=== PATIENT | male | born 1970 | race Caucasian/White ===

== ENCOUNTER 2018-05-07 11:16 | Inpatient (IN) | payer MEDICAID ==
[~2018-05-07] VITALS: Ht 175.3 cm; Wt 89.1 kg
[2018-05-07 11:23] VITALS: Ht 175.3 cm; Wt 89.1 kg
[2018-05-07] MEDS ORDERED: VANCOMYCIN 1 GM (PMX) 250 ML IVPB STA (12:28)
[2018-05-07] MEDS ORDERED: PIPER-TAZO 3.375 GM IV (PMX) 100 ML IVPB STA (12:28)
[2018-05-07] MEDS ORDERED: SODIUM CHLORIDE 0.9% 1L BAG IV* STA (12:28)
--- NOTE | 2018-05-07 13:08 | ERD ---
ER Documentation Chief Complaint Chief Complaint LT PINKY TOE WOUND X 2 WEEKS HPI Patient is a 47-year-old male with past medical history of diabetes, states he takes DM medication from [facility], presents the ER for concerns of left pinky toe wound. Patient states he has had the wound for 2 weeks now. Patient reports foot swelling. Patient denies any fevers or chills. Patient denies falls or trauma. Patient is able to ambulate however he states it is painful. ROS All systems reviewed and are negative except as per history of present illness. Allergies Allergies: Coded Allergies: No Known Allergy (Unverified , 05/07/18) FmHx Family History: No diabetes Physical Exam Vitals Vital Signs Date Temp Pulse Resp B/P (MAP) Pulse Ox O2 O2 Flow FiO2 Time Delivery Rate 05/07/18 98.6 72 18 145/80 98 11:23 (101) Physical Exam GENERAL: Well-developed, well-nourished male. Appears in no acute distress. Speaking in full sentences. Setswana-speaking. HEAD: Normocephalic, atraumatic. EYES: Pupils are equally reactive bilaterally. EOMs grossly intact. No conjunctival erythema. NECK: Supple. No meningismus. Normal range of motion of the neck. LUNG: Clear to auscultation bilaterally. No rhonchi, wheezing, rales or coarse breath sounds. HEART: Regular rate and rhythm. No murmurs, rubs or gallops. EXTREMITIES: Equal pulses bilaterally. No peripheral clubbing, cyanosis or edema. No unilateral leg swelling. NEUROLOGIC: Alert and oriented. Moving all four extremities without any difficulty. Normal speech. Steady gait. SKIN: Superficial ulcer noted to the left fourth digit. Open wound noted to medial aspect of fifth toe in the webspace with necrotic tissue. No active bleeding or discharge. Generalized swelling noted throughout the left foot. Normal pulses. Result Diagram: 05/07/18 1200 05/07/18 1200 Results 24 hrs Laboratory Tests Test 05/07/18 12:00 05/07/18 12:40 05/07/18 12:50 05/07/18 13:28 White Blood Count 7.5 10^3/ul Red Blood Count 4.54 10^6/ul Hemoglobin 14.0 g/dl Hematocrit 40.7 % Mean Corpuscular 89.6 fl Volume Mean Corpuscular 30.8 pg Hemoglobin Mean Corpuscular 34.4 g/dl Hemoglobin Concent Red Cell 11.2 % Distribution Width Platelet Count 261 10^3/UL Mean Platelet 9.6 fl Volume Immature 0.400 % Granulocytes % Neutrophils % 65.7 % Lymphocytes % 22.0 % Monocytes % 9.2 % Eosinophils % 1.9 % Basophils % 0.8 % Nucleated Red Blood 0.0 /100WBC Cells % Immature 0.030 10^3/ul Granulocytes # Neutrophils # 4.9 10^3/ul Lymphocytes # 1.7 10^3/ul Monocytes # 0.7 10^3/ul Eosinophils # 0.1 10^3/ul Basophils # 0.1 10^3/ul Nucleated Red Blood 0.0 10^3/ul Cells # Erythrocyte 28 mm/Hr Sedimentation Rate Sodium Level 131 mmol/L Potassium Level 4.7 mmol/L Chloride Level 100 mmol/L Carbon Dioxide 21 mmol/L Level Anion Gap 10 Blood Urea Nitrogen 30 mg/dl Creatinine 0.66 mg/dl Est Glomerular > 60 mL/min Filtrat Rate mL/min Glucose Level 453 mg/dl Bedside Glucose 400 mg/dL 344 mg/dL Calcium Level 8.8 mg/dl Total Bilirubin 0.4 mg/dl Direct Bilirubin 0.00 mg/dl Indirect Bilirubin 0.4 mg/dl Aspartate Amino 15 IU/L Transf (AST/SGOT) Alanine 9 IU/L Aminotransferase (A LT/SGPT) Alkaline 137 IU/L Phosphatase C-Reactive Protein 2.1 mg/dl Total Protein 6.7 g/dl Albumin 3.5 g/dl Globulin 3.20 g/dl Albumin/Globulin 1.09 Ratio Lipase 48 U/L Urine Color YELLOW Urine Clarity SLIGHTLY CLOUDY Urine pH 5.0 Urine Specific 1.022 [place] Urine Ketones NEGATIVE mg/dL Urine Nitrite NEGATIVE mg/dL Urine Bilirubin NEGATIVE mg/dL Urine Urobilinogen NEGATIVE mg/dL Urine Leukocyte 3+ Marlene/ul Esterase Urine Microscopic 4 /HPF RBC Urine Microscopic 7 /HPF WBC Urine Squamous FEW /HPF Epithelial Cells Urine Hemoglobin 1+ mg/dL Urine Glucose 3+ mg/dL Urine Total Protein NEGATIVE mg/dl Lactic Acid Level 1.6 mmol/L Current Medications Medications Dose Sig/Filiberto Start Time Status Last (Trade) Ordered Route PRN Stop Time Admin Dose Reason Admin Sodium 2,630 ml BOLUS OVER 2 05/07/18 DC 05/07/18 Chloride HOURS STAT 12:28 05/07/18 12:50 (NS) IV* 12:29 Vancomycin 250 ml @ ONCE STAT 05/07/18 DC 05/07/18 HCl 125 mls/hr IVPB 12:28 05/07/18 13:29 14:27 Piperacillin 100 ml @ ONCE STAT 05/07/18 DC 05/07/18 Sod/ 200 mls/hr IVPB 12:28 05/07/18 12:51 Tazobactam 12:57 Sod Insulin 10 unit ONCE ONCE 05/07/18 DC 05/07/18 Human SC 13:30 05/07/18 13:30 Lispro 13:31 (Humalog) Ondansetron 4 mg BRIDGE ORDER 05/07/18 HCl (Zofran PRN IV 14:00 05/08/18 Inj) NAUSEA/VOMITI 13:59 NG 650 mg ER BRIDGE 05/07/18 Acetaminophen PRN PO 14:00 05/08/18 (Tylenol .MILD PAIN 13:59 Tab) 1-3 OR TEMP IV Flush 3 ml PER 05/07/18 UNV (NS 3 ml) PROTOCOL IV 15:00 Ondansetron 4 mg Q6H PRN 05/07/18 UNV HCl (Zofran IV 15:00 Inj) NAUSEA/VOMITI NG 650 mg Q6H PRN 05/07/18 UNV Acetaminophen PO .PAIN 1-3 15:00 (Tylenol OR TEMP Tab) Heparin 5,000 unit Q8 SC 05/07/18 UNV Sodium 22:00 (Porcine) (Heparin (5000 Units/1ml)) Vancomycin VANCOMYCIN PER 05/07/18 UNV HCl (Vanco PER PHARMACY PROTOCOL XX 15:30 Iv Per Pharmacy) Piperacillin 100 ml @ Q6 IVPB 05/07/18 UNV Sod/ 200 mls/hr 18:00 Tazobactam Sod Procedures/MDM ED COURSE: The patient was stable throughout ED course. I kept the patient and/or family informed of laboratory and diagnostic imaging results throughout the ED course. DIAGNOSTIC IMAGING: Read by radiologist. Patient: WILL SANCHEZ : 1970 Age: 47 Sex: M MR #: [id number] DOS: 05/07/18 1147 Ordering MD: SCOTT HENNESSY PA-C Location: [facility] Room/Bed: PROCEDURE: XR Left Foot. CLINICAL INDICATION: left foot pain TECHNIQUE: AP, lateral and oblique views of the left foot was obtained. The images were reviewed on a PACS workstation. COMPARISON: None. FINDINGS: No acute appearing or displaced fracture detected. No definite erosive changes. Prominent mid and forefoot soft tissue swelling. No foreign body or soft tissue gas. Small calcaneal spurs. Severe vascular calcifications. IMPRESSION: Prominent soft tissue swelling without evidence of acute osseous abnormality. Consider MRI if there is concern for osteomyelitis. Physician Shasha Date Time Electronically viewed and signed by Physician Shasha on 05/07/2018 12:37 RF/ CC: SCOTT HENNESSY PA-C [id number] PROCEDURES: None. MEDICATIONS GIVEN: IV fluids, Zosyn, vancomycin Patient tolerated medication well with no adverse reactions. MEDICAL DECISION MAKING: This is a 47-year-old male with uncontrolled diabetes who presents ER for concerns of left pinky toe wound times 2 weeks.. Vital signs were reviewed. Patient was afebrile. Physical exam findings are concerning for an open toe wound with necrotic tissue. IV line was established. Blood work was obtained. Accu-Chek was noted to be 400. CBC showed no evidence of systemic infection or anemia. CMP showed glucose of 453. Bicarb was within normal limits. UA was negative for ketones. UA did show 3+ leukocyte esterase, 3+ glucose, 1+ hemoglobin. Urine will be sent for culture. CRP was 2.1. ESR was 23. Lipase was within normal limits. Doubt DKA at this time. Patient was given 10 units of Humalog SC and blood sugar was noted to be downtrending at this time. X-ray of the left foot showed prominent soft tissue swelling without evidence of acute osseous abnormality. MRI was advised if there were concerns for osteomyelitis. Lactate and blood cultures were obtained prior to administration of antibiotics. Lactic acid was 1.6. IV fluids was given. Patient was also given vancomycin and Zosyn here in the ER. Case was discussed with the supervising physician Dr. Badillo who agreed that patient was appropriate for admission at this time. Patient will be admitted for uncontrolled diabetes and necrotic toe wound. Patient also likely has a UTI. Dr. Badillo will assist with admission. Departure Diagnosis: Primary Impression: Toe ulcer Laterality: unspecified laterality Non-pressure ulcer stage: unspecified non-pressure ulcer stage Qualified Codes: L97.509 - Non-pressure chronic ulcer of other part of unspecified foot with unspecified severity Additional Impressions: Diabetes mellitus type 2, uncontrolled Glycemic state: with hyperglycemia Qualified Codes: E11.65 - Type 2 diabetes mellitus with hyperglycemia Swelling of left foot UTI (urinary tract infection) Urinary tract infection type: site unspecified Hematuria presence: without hematuria Qualified Codes: N39.0 - Urinary tract infection, site not specified Condition: SCOTT Emanuel PA-C May 07, 2018 13:08
[2018-05-07] MEDS ORDERED: INSULIN LISPRO 100 UNIT/ML VIAL SC ONE (13:30)
[2018-05-07] MEDS ORDERED: ONDANSETRON 4 MG INJ IV PRN ×2 (14:00→15:00)
[2018-05-07] MEDS ORDERED: ACETAMINOPHEN 325 MG TAB PO PRN ×2 (14:00→15:00)
[2018-05-07] MEDS ORDERED: NACL 0.9% 3 ML SYG IV SCH (15:00)
--- NOTE | 2018-05-07 15:14 | HP ---
Date/Time of Note Date/Time of Note DATE: 05/07/18 TIME: 15:04 Assessment/Plan VTE Prophylaxis SCD contraindicated: other (foot debridements) Pharmacological prophylaxis: heparin Lines/Catheters IV Catheter Type (from [facility]): Saline Lock Urinary Cath still in place: No Assessment/Plan Assessment/Plan 47 yo man newly diagnosed diabetes presents with diabetic foot ulcers #Foot ulcers - L toe ulcer looks infected - roberto Poole - Dr Phoenix consulted, doing debridement at bedside - Will f/u wound cultures - Also f/u MRI for osteomyelitis #Asymptomatic bacteruria - Unclear why UA was sent, patient denies urinary symptoms. #Diabetes - Send HgbA1C - Insulin sliding scale - Glargine 10u qhs - Consult Krista diabetes education DVT: heparin GI: None Result Diagram: 05/07/18 1200 05/07/18 1200 HPI/ROS Admit Date/Time Admit Date/Time May 07, 2018 Hx of Present Illness Mr. Da Valero is a pleasant 47 yo man from [facility] who presents with feet ulcers. Was in his usual state of health until about 2 weeks ago when he noticed a worsening L foot ulcer on his pinky toe. Also had R leg edema at the end of the day; but when he wakes up in the morning it's back to normal. About a week ago got tetracycline capsules at a clinic; he has been taking one orally every day and rubbing on topically on the affected digit. Had a fever the day prior to admission, so presented to the ED. In the ED he was afebrile; vital signs stable. Labs notable for hyponatremia to 131, hyperglycemia to 453. No known history of diabetes. XR of L foot shows soft tissue swelling, possible bonnie-osteal reaction. ROS Denies chills, night sweats, weight loss, fatigue, headache, vision changes, dysphagia, odynophagia, neck pain, chest pain/pressure/palpitations, cough, dyspnea, nausea, vomiting, abdominal pain, diarrhea, constipation, melena, skin changes. PMH/Family/Social Past Medical History Medical History: no pertinent history Medications Current Medications Ondansetron HCl (Zofran Inj) 4 mg BRIDGE ORDER PRN IV NAUSEA/VOMITING; Start 05/07/18 at 14:00; Stop 05/08/18 at 13:59 Acetaminophen (Tylenol Tab) 650 mg ER BRIDGE PRN PO .MILD PAIN 1-3 OR TEMP; Start 05/07/18 at 14:00; Stop 05/08/18 at 13:59 IV Flush (NS 3 ml) 3 ml PER PROTOCOL IV ; Start 05/07/18 at 15:00; Status UNV Ondansetron HCl (Zofran Inj) 4 mg Q6H PRN IV NAUSEA/VOMITING; Start 05/07/18 at 15:00; Status UNV Acetaminophen (Tylenol Tab) 650 mg Q6H PRN PO .PAIN 1-3 OR TEMP; Start 05/07/18 at 15:00; Status UNV Heparin Sodium (Porcine) (Heparin (5000 Units/1ml)) 5,000 unit Q8 SC ; Start 05/07/18 at 22:00; Status UNV Coded Allergies: No Known Allergy (Unverified , 05/07/18) Past Surgical History R inguinal hernia surgery Social History Alcohol Use: rarely (1 drink per week) Smoking Status: Never smoker Drug Use: none Exam/Review of Systems Vital Signs Vitals Vital Signs Date Temp Pulse Resp B/P (MAP) Pulse Ox O2 O2 Flow FiO2 Time Delivery Rate 05/07/18 98.6 72 18 145/80 98 11:23 (101) Exam Exam Gen: Well developed man in no acute distress Eyes: PERRL, no icterus HEENT: Moist mucous membranes, clear oropharynx Neck: Soft, no lymphadenopathy, supple Card: Regular rate and rhythm, no murmurs Pulm: Clear to auscultation bilaterally Abd: Soft, nontender, nondistended. No hepatosplenomegaly. Ext: L leg 2+ pitting edema to knee, R leg no significant edema. 2+ PT pulses bilaterally. Skin: R foot small dorsal superficial dry ulcer. L foot deep ulcer of the 5th digit with some necrosis centrally. MADI LUNDBERG MD May 07, 2018 15:14
--- NOTE | 2018-05-07 15:22 | CONS ---
Assessment/Plan Assessment/Plan Assessment/Plan (Daily) bilateral feet diabetic foot ulcer Left lower extremity cellulitis Suspicion for osteomyelitis left foot DM2 with peripheral neuropathy Edema b/l lower extremities Plan Consent was obtained and performed excisional debridement of skin/subQ of bilateral diabetic ulceration sites using a scalpel blade and pickup/scissors. Fibrotic tissue, hyperkeratotic tissue and non viable tissue was removed. 6.01cm2 of area was debrided. Recommend daily dressing changes with betadine 4x4 gauze, kerlix and pritesh wrap. X-rays, MRI, and non invasive arterial studies ordered. Wound cultures were obtained and recommend initiate IV abx. Patient will likely need staged procedures. Continue to monitor while in house. Consultation Date/Type/Reason Admit Date/Time May 07, 2018 Date/Time of Note DATE: 05/07/18 TIME: 15:19 Hx of Present Illness 47 y/o M patient presents to the ED with worsening left foot ulcer to the left 4th and 5th toe region along with right dorsal nataly ulceration site. 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 Patient states he had intermittent fevers several days ago. He was unaware that he is diabetic and reports numbness, burning and tingling to the feet. He had noticed increased swelling to the lower extremities left worse than the right. ROS negative except for HPI Past Medical History Medical History: no pertinent history Medications Current Medications Ondansetron HCl (Zofran Inj) 4 mg BRIDGE ORDER PRN IV NAUSEA/VOMITING; Start 05/07/18 at 14:00; Stop 05/08/18 at 13:59 Acetaminophen (Tylenol Tab) 650 mg ER BRIDGE PRN PO .MILD PAIN 1-3 OR TEMP; Start 05/07/18 at 14:00; Stop 05/08/18 at 13:59 IV Flush (NS 3 ml) 3 ml PER PROTOCOL IV ; Start 05/07/18 at 15:00; Status UNV Ondansetron HCl (Zofran Inj) 4 mg Q6H PRN IV NAUSEA/VOMITING; Start 05/07/18 at 15:00; Status UNV Acetaminophen (Tylenol Tab) 650 mg Q6H PRN PO .PAIN 1-3 OR TEMP; Start 05/07/18 at 15:00; Status UNV Heparin Sodium (Porcine) (Heparin (5000 Units/1ml)) 5,000 unit Q8 SC ; Start 05/07/18 at 22:00; Status UNV Vancomycin HCl (Vanco Iv Per Pharmacy) VANCOMYCIN PER PHARMACY PER PROTOCOL XX ; Start 05/07/18 at 15:30; Status UNV Piperacillin Sod/ Tazobactam Sod 100 ml @ 200 mls/hr Q6 IVPB ; Start 05/07/18 at 18:00; Status UNV Diagnostic Test (Pha) (Accu-Chek) 1 XX ; Start 05/08/18 at 02:00; Status UNV Miscellaneous Information (* Miscellaneous Pharmacy Order) HYPOGLYCEMIA PROTOCOL w... ONCE ONCE XX ; Start 05/07/18 at 15:30; Stop 05/07/18 at 15:31; Status UNV Insulin Aspart (Novolog Insulin Pen) NOVOLOG *MODERATE* ALGORITHM WITH MEALS BEDTIME SC ; Start 05/07/18 at 18:00; Status UNV Insulin Glargine (Lantus) 10 units DAILY@2000 SC ; Start 05/07/18 at 20:00; Status UNV Allergies: Coded Allergies: No Known Allergy (Unverified , 05/07/18) Past Surgical History R inguinal hernia surgery Family History Significant Family History: no pertinent family hx Social History Alcohol Use: rarely (1 drink per week) Smoking Status: Never smoker Drug Use: none Exam/Review of Systems Exam Vitals Vital Signs Date Temp Pulse Resp B/P (MAP) Pulse Ox O2 O2 Flow FiO2 Time Delivery Rate 05/07/18 98.6 72 18 145/80 98 11:23 (101) Exam DP/PT pulses weakly palpable, Popliteal pulses palpable 2+ pitting edema to bilateral lower extremities Left lower extremity with erythema present Left medial 5th digit ulceration with fibronecrotic wound base 3.5 x 1.5 x 0.3cm, unable to probe to bone there is hyperkeratotic tissue on periphery of wound Left lateral 4th digit ulceration with fibrogranular wound base 1.0 x 0.6 x 0.2cm, unable to probe to bone, maceration appreciated, no purulence appreciated Right dorsal foot ulceration with granular wound bed and scant purulent expressed 0.4 x 0.4 x 0.2cm, unable to probe to bone, no erythema Absent protective sensations 4/5 muscle strength to all compartments of the foot Left foot x-ray IMPRESSION: Prominent soft tissue swelling without evidence of acute osseous abnormality. Consider MRI if there is concern for osteomyelitis. .16 5.25 Results Result Diagram: 05/07/18 1200 05/07/18 1200 Results 24hrs Laboratory Tests Test 05/07/18 12:00 05/07/18 12:40 05/07/18 12:50 05/07/18 13:28 White Blood Count 7.5 Red Blood Count 4.54 L Hemoglobin 14.0 Hematocrit 40.7 L Mean Corpuscular 89.6 Volume Mean Corpuscular 30.8 Hemoglobin Mean Corpuscular 34.4 Hemoglobin Concent Red Cell 11.2 L Distribution Width Platelet Count 261 Mean Platelet 9.6 Volume Immature 0.400 Granulocytes % Neutrophils % 65.7 Lymphocytes % 22.0 Monocytes % 9.2 Eosinophils % 1.9 Basophils % 0.8 Nucleated Red 0.0 Blood Cells % Immature 0.030 Granulocytes # Neutrophils # 4.9 Lymphocytes # 1.7 Monocytes # 0.7 Eosinophils # 0.1 Basophils # 0.1 Nucleated Red 0.0 Blood Cells # Erythrocyte 28 H Sedimentation Rate Sodium Level 131 L Potassium Level 4.7 Chloride Level 100 Carbon Dioxide 21 Level Anion Gap 10 Blood Urea 30 H Nitrogen Creatinine 0.66 Est Glomerular > 60 Filtrat Rate mL/min Glucose Level 453 *H Bedside Glucose 400 H 344 H Calcium Level 8.8 Total Bilirubin 0.4 Direct Bilirubin 0.00 Indirect Bilirubin 0.4 Aspartate Amino 15 Transf (AST/SGOT) Alanine 9 L Aminotransferase ( ALT/SGPT) Alkaline 137 H Phosphatase C-Reactive Protein 2.1 H Total Protein 6.7 Albumin 3.5 Globulin 3.20 Albumin/Globulin 1.09 Ratio Lipase 48 Urine Color YELLOW Urine Clarity SLIGHTLY CLOUDY A Urine pH 5.0 Urine Specific 1.022 [place] Urine Ketones NEGATIVE Urine Nitrite NEGATIVE Urine Bilirubin NEGATIVE Urine Urobilinogen NEGATIVE Urine Leukocyte 3+ H Esterase Urine Microscopic 4 RBC Urine Microscopic 7 H WBC Urine Squamous FEW Epithelial Cells Urine Hemoglobin 1+ H Urine Glucose 3+ H Urine Total NEGATIVE Protein Lactic Acid Level 1.6 Medications Medication Current Medications Ondansetron HCl (Zofran Inj) 4 mg BRIDGE ORDER PRN IV NAUSEA/VOMITING; Start 05/07/18 at 14:00; Stop 05/08/18 at 13:59 Acetaminophen (Tylenol Tab) 650 mg ER BRIDGE PRN PO .MILD PAIN 1-3 OR TEMP; Start 05/07/18 at 14:00; Stop 05/08/18 at 13:59 IV Flush (NS 3 ml) 3 ml PER PROTOCOL IV ; Start 05/07/18 at 15:00; Status UNV Ondansetron HCl (Zofran Inj) 4 mg Q6H PRN IV NAUSEA/VOMITING; Start 05/07/18 at 15:00; Status UNV Acetaminophen (Tylenol Tab) 650 mg Q6H PRN PO .PAIN 1-3 OR TEMP; Start 05/07/18 at 15:00; Status UNV Heparin Sodium (Porcine) (Heparin (5000 Units/1ml)) 5,000 unit Q8 SC ; Start 05/07/18 at 22:00; Status UNV Vancomycin HCl (Vanco Iv Per Pharmacy) VANCOMYCIN PER PHARMACY PER PROTOCOL XX ; Start 05/07/18 at 15:30; Status UNV Piperacillin Sod/ Tazobactam Sod 100 ml @ 200 mls/hr Q6 IVPB ; Start 05/07/18 at 18:00; Status UNV Diagnostic Test (Pha) (Accu-Chek) 1 ea XX ; Start 05/08/18 at 02:00; Status UNV Miscellaneous Information (* Miscellaneous Pharmacy Order) HYPOGLYCEMIA PROTOCOL w... ONCE ONCE XX ; Start 05/07/18 at 15:30; Stop 05/07/18 at 15:31; Status UNV Insulin Aspart (Novolog Insulin Pen) NOVOLOG *MODERATE* ALGORITHM WITH MEALS BEDTIME SC ; Start 05/07/18 at 18:00; Status UNV Insulin Glargine (Lantus) 10 units DAILY@2000 SC ; Start 05/07/18 at 20:00; Status UNV ADORE PETIT DPMelody May 07, 2018 15:22
[2018-05-07] MEDS ORDERED: VANCOMYCIN IV PER PHARMACY XX SCH (15:30)
[2018-05-07] MEDS ORDERED: GLUCOSE GEL 15 GRAM TUBE BUCCAL PRN (16:00)
[2018-05-07] MEDS ORDERED: DEXTROSE 50% 50 ML SYRINGE IV PRN ×2 (16:00)
[2018-05-07] MEDS ORDERED: GLUCAGON 1 MG INJ IM PRN (16:00)
[2018-05-07] MEDS ORDERED: GLUCOSE GEL 15 GRAM TUBE PO PRN ×2 (16:00)
[2018-05-07 16:03] VITALS: BP 149/95; PULSE 83; RESP 17
[2018-05-07] MEDS ORDERED: GUAIFENESIN 20 MG/ML 5ML CUP PO PRN (17:00)
[2018-05-07] MEDS: INSULIN ASPART [NOVOLOG] 3 ML PEN SC SCH ×2 (18:00→22:15)
[2018-05-07] MEDS: PIPER-TAZO 3.375 GM IV (PMX) 100 ML IVPB SCH (18:54)
[2018-05-07 20:01] VITALS: BP 138/86; PULSE 85; RESP 18
[2018-05-07] MEDS: VANCOMYCIN 1 GM 250 ML IVPB SCH (22:06)
[2018-05-07] MEDS: HEPARIN 5,000 UNIT/1 ML VIAL SC SCH (22:13)
[2018-05-07] MEDS: INSULIN GLARGINE [LANTus] (100 UNITS/ML) SYG SC SCH (22:14)
[2018-05-08] MEDS: PIPER-TAZO 3.375 GM IV (PMX) 100 ML IVPB SCH ×5 (00:26→23:42)
[2018-05-08 01:27] VITALS: BP 122/71; PULSE 88; RESP 19
[2018-05-08] MEDS: ACCU-CHEK XX SCH (01:53)
[2018-05-08] MEDS: VANCOMYCIN 1 GM 250 ML IVPB SCH ×3 (06:20→21:24)
[2018-05-08] MEDS: HEPARIN 5,000 UNIT/1 ML VIAL SC SCH ×3 (06:22→21:18)
[2018-05-08 07:29] VITALS: BP 123/80; PULSE 80; RESP 20
[2018-05-08] MEDS: INSULIN ASPART [NOVOLOG] 3 ML PEN SC SCH ×4 (08:00→21:18)
--- NOTE | 2018-05-08 09:52 | CONS ---
Assessment/Plan Assessment/Plan Assessment/Plan (Daily) bilateral feet diabetic foot ulcer Left lower extremity cellulitis - improving Osteomyelitis left foot DM2 with peripheral neuropathy Edema b/l lower extremities Plan MRI results showed osteomyelitis to the left 5th digit. Patient will need social service consult to obtain health insurance to allow follow up in [facility] wound clinic, patient only has medi-Dwain. Urine Cx showing tanesha albicans. Recommend daily dressing changes with santyl, betadine 4x4 gauze, kerlix and pritesh wrap. X-rays, MRI, and non invasive arterial reviewed. No significant vascular disease. Wound cultures pending. 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 Appreciate ID input. Tight glycemic control. Recommend diabetes education. Consultation Date/Type/Reason Admit Date/Time May 07, 2018 at 13:47 Initial Consult Date Date/Time of Note DATE: 05/08/18 TIME: 09:52 24 HR Interval Summary Free Text/Dictation No acute events overnight. Exam/Review of Systems Exam Vitals Vital Signs Date Temp Pulse Resp B/P (MAP) Pulse Ox O2 O2 Flow FiO2 Time Delivery Rate 05/08/18 98.3 80 20 123/80 96 07:29 (94) 05/07/18 Room Air 16:03 Intake and Output 05/07/18 05/07/18 05/08/18 1515:00 23:00 07:00 IntakeIntake Total 460 ml 350 ml OutputOutput Total 1600 ml 1400 ml BalanceBalance -1140 ml -1050 ml Exam DP/PT pulses weakly palpable, Popliteal pulses palpable 2+ pitting edema to bilateral lower extremities Left lower extremity with erythema present Left medial 5th digit ulceration with fibronecrotic wound base 3.5 x 1.5 x 0.3cm, unable to probe to bone there is hyperkeratotic tissue on periphery of wound Left lateral 4th digit ulceration with fibrogranular wound base 1.0 x 0.6 x 0.2cm, unable to probe to bone, maceration appreciated, no purulence appreciated Right dorsal foot ulceration with granular wound bed and scant purulent expressed 0.4 x 0.4 x 0.2cm, unable to probe to bone, no erythema Absent protective sensations 4/5 muscle strength to all compartments of the foot Left foot x-ray IMPRESSION: Prominent soft tissue swelling without evidence of acute osseous abnormality. Consider MRI if there is concern for osteomyelitis. Non invasive arterial studies IMPRESSION: No evidence of significant peripheral arterial disease. L foot MRI IMPRESSION: 1. Soft tissue swelling/ulcer in the fifth digit with osteomyelitis of the fifth middle and distal phalanges. Reactive osteitis in the fifth proximal phalanx with a possible small focus of marrow infiltrative signal in the head, and early osteomyelitis is not excluded. 2. Diffuse subcutaneous edema as detailed above, and diffuse edema in the visualized portions of the intrinsic musculature of the foot which may be neuropathic. R foot X-ray IMPRESSION: Soft tissue swelling without evidence of acute fracture. Results Result Diagram: 05/08/18 0435 05/08/18 0435 Results 24hrs Laboratory Tests Test 05/07/18 12:00 05/07/18 12:40 05/07/18 12:50 05/07/18 13:28 White Blood Count 7.5 Red Blood Count 4.54 L Hemoglobin 14.0 Hematocrit 40.7 L Mean Corpuscular 89.6 Volume Mean Corpuscular 30.8 Hemoglobin Mean Corpuscular 34.4 Hemoglobin Concent Red Cell 11.2 L Distribution Width Platelet Count 261 Mean Platelet 9.6 Volume Immature 0.400 Granulocytes % Neutrophils % 65.7 Lymphocytes % 22.0 Monocytes % 9.2 Eosinophils % 1.9 Basophils % 0.8 Nucleated Red 0.0 Blood Cells % Immature 0.030 Granulocytes # Neutrophils # 4.9 Lymphocytes # 1.7 Monocytes # 0.7 Eosinophils # 0.1 Basophils # 0.1 Nucleated Red 0.0 Blood Cells # Erythrocyte 28 H Sedimentation Rate Sodium Level 131 L Potassium Level 4.7 Chloride Level 100 Carbon Dioxide 21 Level Anion Gap 10 Blood Urea 30 H Nitrogen Creatinine 0.66 Est Glomerular > 60 Filtrat Rate mL/min Glucose Level 453 *H Bedside Glucose 400 H 344 H Calcium Level 8.8 Total Bilirubin 0.4 Direct Bilirubin 0.00 Indirect Bilirubin 0.4 Aspartate Amino 15 Transf (AST/SGOT) Alanine 9 L Aminotransferase ( ALT/SGPT) Alkaline 137 H Phosphatase C-Reactive Protein 2.1 H Total Protein 6.7 Albumin 3.5 Globulin 3.20 Albumin/Globulin 1.09 Ratio Lipase 48 Urine Color YELLOW Urine Clarity SLIGHTLY CLOUDY A Urine pH 5.0 Urine Specific 1.022 [place] Urine Ketones NEGATIVE Urine Nitrite NEGATIVE Urine Bilirubin NEGATIVE Urine Urobilinogen NEGATIVE Urine Leukocyte 3+ H Esterase Urine Microscopic 4 RBC Urine Microscopic 7 H WBC Urine Squamous FEW Epithelial Cells Urine Hemoglobin 1+ H Urine Glucose 3+ H Urine Total NEGATIVE Protein Lactic Acid Level 1.6 Test 05/07/18 16:16 05/07/18 18:50 05/07/18 19:22 05/07/18 22:07 Lactic Acid Level 1.5 1.5 Bedside Glucose 114 213 Test 05/08/18 01:24 05/08/18 04:32 05/08/18 04:35 05/08/18 08:33 Bedside Glucose 158 118 C-Reactive Protein 2.8 H White Blood Count 7.6 Red Blood Count 4.46 L Hemoglobin 13.7 L Hematocrit 40.1 L Mean Corpuscular 89.9 Volume Mean Corpuscular 30.7 Hemoglobin Mean Corpuscular 34.2 Hemoglobin Concent Red Cell 11.4 L Distribution Width Platelet Count 266 Mean Platelet 9.6 Volume Immature 0.300 Granulocytes % Neutrophils % 53.6 Lymphocytes % 32.3 Monocytes % 10.6 Eosinophils % 2.2 Basophils % 1.0 Nucleated Red 0.0 Blood Cells % Immature 0.020 Granulocytes # Neutrophils # 4.1 Lymphocytes # 2.5 Monocytes # 0.8 Eosinophils # 0.2 Basophils # 0.1 Nucleated Red 0.0 Blood Cells # Sodium Level 139 Potassium Level 4.1 Chloride Level 105 Carbon Dioxide 26 Level Anion Gap 8 Blood Urea 20 Nitrogen Creatinine 0.76 Est Glomerular > 60 Filtrat Rate mL/min Glucose Level 114 # Hemoglobin A1c 12.8 H Calcium Level 8.8 Phosphorus Level 3.9 Magnesium Level 1.9 Total Bilirubin 0.4 Direct Bilirubin 0.00 Indirect Bilirubin 0.4 Aspartate Amino 13 L Transf (AST/SGOT) Alanine 12 L Aminotransferase ( ALT/SGPT) Alkaline 101 Phosphatase Total Protein 6.6 Albumin 3.3 Globulin 3.30 H Albumin/Globulin 1.00 Ratio Triglycerides 169 H Level Cholesterol Level 139 LDL Cholesterol, 72 Calculated HDL Cholesterol 33 Cholesterol/HDL 4.2 Ratio Thyroid 1.470 Stimulating Hormone (TSH) Medications Medication Current Medications IV Flush (NS 3 ml) 3 ml PER PROTOCOL IV ; Start 05/07/18 at 15:00 Ondansetron HCl (Zofran Inj) 4 mg Q6H PRN IV NAUSEA/VOMITING; Start 05/07/18 at 15:00 Acetaminophen (Tylenol Tab) 650 mg Q6H PRN PO .PAIN 1-3 OR TEMP; Start 05/07/18 at 15:00 Heparin Sodium (Porcine) (Heparin (5000 Units/1ml)) 5,000 unit Q8 SC Last administered on 05/08/18at 06:22; Admin Dose 5,000 UNIT; Start 05/07/18 at 22:00 Vancomycin HCl (Vanco Iv Per Pharmacy) VANCOMYCIN PER PHARMACY PER PROTOCOL XX ; Start 05/07/18 at 15:30 Piperacillin Sod/ Tazobactam Sod 100 ml @ 200 mls/hr Q6 IVPB Last administered on 05/08/18at 05:40; Admin Dose 200 MLS/HR; Start 05/07/18 at 18:00 Diagnostic Test (Pha) (Accu-Chek) 1 ea 02 XX ; Start 05/08/18 at 02:00 Insulin Aspart (Novolog Insulin Pen) NOVOLOG *MODERATE* ALGORITHM WITH MEALS BEDTIME SC Last administered on 05/07/18at 22:15; Admin Dose 1 UNIT; Start 05/07/18 at 18:00 Insulin Glargine (Lantus) 10 units DAILY@2000 SC Last administered on 05/07/18at 22:14; Admin Dose 10 UNITS; Start 05/07/18 at 20:00 Miscellaneous Information 1 ea NOTE XX ; Start 05/07/18 at 16:00 Glucose (Glutose) 15 gm Q15M PRN PO DECREASED GLUCOSE; Start 05/07/18 at 16:00 Glucose (Glutose) 22.5 gm Q15M PRN PO DECREASED GLUCOSE; Start 05/07/18 at 16:00 Dextrose (D50w Syringe) 25 ml Q15M PRN IV DECREASED GLUCOSE; Start 05/07/18 at 16:00 Dextrose (D50w Syringe) 50 ml Q15M PRN IV DECREASED GLUCOSE; Start 05/07/18 at 16:00 Glucagon (Glucagen) 1 mg Q15M PRN IM DECREASED GLUCOSE; Start 05/07/18 at 16:00 Glucose (Glutose) 15 gm Q15M PRN BUCCAL DECREASED GLUCOSE; Start 05/07/18 at 16:00 Guaifenesin (Robitussin Liquid Cup) 200 mg Q4H PRN PO koff koff Last administered on 05/07/18at 18:54; Admin Dose 200 MG; Start 05/07/18 at 17:00 Vancomycin HCl 250 ml @ 125 mls/hr Q8H IVPB Last administered on 05/08/18at 06:20; Admin Dose 125 MLS/HR; Start 05/07/18 at 22:00 Miscellaneous Information (*Rx Drug Level Order Reminder*) VANCO TR LEVEL PRIOR. .. 1300 ONCE XX ; Start 05/08/18 at 13:00; Stop 05/08/18 at 13:01 Sodium Hypochlorite (Dakins Diluted ()) 1 ml DAILY TP ; Start 05/08/18 at 09:00 Collagenase (Santyl) 1 applic DAILY TOP ; Start 05/08/18 at 09:00 ADORE PETIT DPM May 08, 2018 09:52
--- NOTE | 2018-05-08 11:24 | CONS ---
DATE OF ADMISSION: 05/07/2018 DATE OF CONSULTATION: 05/08/2018 TYPE OF CONSULTATION: Infectious Disease. REASON FOR CONSULTATION: Antibiotic management. HISTORY OF PRESENT ILLNESS: The patient is a 47-year-old male who comes in with left fifth toe wound of 2 weeks' duration. His past problems include: 1. Adult-onset diabetes mellitus. 2. Injury to his left 5th toe. He states that he had the wound for 2 weeks before coming in [facility] with foot swelling. He has no fever or chills. He denies falls or trauma. It is painful. PAST MEDICAL HISTORY: Operations: None. FAMILY HISTORY: Noncontributory. SOCIAL HISTORY: He does not smoke, drink or abuse drugs. ALLERGIES: NONE TO PENICILLIN, SULFA OR FOODS. MEDICATIONS: Per chart. REVIEW OF SYSTEMS: As per HPI. LABORATORY DATA: On admission, his white count was 7.5, H and H of 14 and 40.7, platelet count 261,0 00. BUN and creatinine 30/0.66. Random glucose was 153, white count is 7.5, 66% neutrophils. Urina lysis showed 3+ leukocyte esterase, only 7 white cells per high-power field and 4 red blood cells per high-power field. HOSPITAL COURSE: The patient was started on vancomycin and Zosyn. An x-ray of the left foot showed no acute appearing or displaced fractures detected, prominent mid and forefoot soft tissue swelling, no foreign body or soft tissue gas. Small calcaneal spurs, severe vascular calcifications, prominent soft tissue swelling without evidence of acute osseous abnormality. Consider MRI if there is concer n for osteomyelitis. The patient was admitted with uncontrolled diabetes and left fifth toe wound. He was seen in consultation by Dr. Phoenix who noted bilateral diabetic foot ulcers, left lower ext remity cellulitis, suspicion for osteomyelitis of the left foot, diabetes mellitus with peripheral ne uropathy, edema. He performed an excisional debridement of the diabetic ulcer site on the left foot recommended daily dressings with Betadine, x-rays, MRI noninvasive arterial studies were ordered. Wo und cultures were obtained and IV antibiotics were started. An MRI shows osteomyelitis of the left 5 th digit, it shows soft tissue swelling in the 5th digit with osteomyelitis of the 5th middle and [place] phalanges, reactive osteitis in the fifth proximal phalanx with a possible small focus of marrow infiltrate. Infiltrate is single in the head and early osteomyelitis cannot be excluded, diffuse sub cutaneous edema was noted. Urine grew out tanesha albicans 10,000 to 20,000 colony-forming units per mL. The patient was started on vancomycin and Zosyn and we can add fluconazole to his regimen. PHYSICAL EXAMINATION: GENERAL: The patient is well-developed, well-nourished male, awake, responsive, in no acute distress . VITAL SIGNS: Stable. He is afebrile. SKIN: Without generalized rash. HEENT: Within normal limits. NECK: Supple. LYMPH NODES: None palpable. CHEST: Decreased breath sounds at the bases. HEART: Without murmur or gallop. ABDOMEN: Soft, nontender, without organomegaly, splenomegaly or masses. EXTREMITIES: Without cyanosis, clubbing, or edema. He has his left foot bandaged at this point, sta tus post debridement and bandaging left extremity cellulitis is present but is reportedly improving. RECTAL AND GENITAL: Deferred. NEUROLOGIC: No focal neurological abnormality except for decreased sensation in the distal extremiti es. IMPRESSION AND PLAN: The patient is a 47-year-old male who comes in now with osteomyelitis of left f ifth toe. He is on vancomycin and Zosyn. He has 10 to 20,000 colonies of tanesha in his urine, so w e will put him on fluconazole 100 mg to 200 mg daily for 4 or 5 days. I will dictate my findings to the hospitalist and to Dr. Phoenix and Dr. García. Dictated By: MILTON HARDIN MD, JD/ENIO Conf#: [id number] DID#: [id number] CC: MADI LUNDBERG MD; MILTON HARDIN MD;*[facility]*
[2018-05-08] MEDS: DAKINS 0.0125%(1/40) 473 ML SOLUTION TP SCH (13:24)
[2018-05-08] MEDS: COLLAGENASE 5 GM (UD JAR) TOP SCH (13:24)
[2018-05-08] MEDS: FLUCONAZOLE 200 MG TAB PO SCH (13:48)
[2018-05-08 14:22] VITALS: BP 138/87; PULSE 89; RESP 20
--- NOTE | 2018-05-08 16:59 | PN ---
Date/Time of Note Date/Time of Note DATE: 05/08/18 TIME: 16:57 Assessment/Plan VTE Prophylaxis Risk score (from Nsg)>0 risk: 1 SCD applied (from Ns): No SCD contraindicated: low risk/ambulating Pharmacological prophylaxis: heparin Lines/Catheters IV Catheter Type (from Nrsg): Saline Lock Urinary Cath still in place: No Assessment/Plan Assessment/Plan 47 yo man newly diagnosed diabetes presents with diabetic foot ulcers #Foot ulcers - MRI positive for L foot osteomyelitis - roberto Poole - Dr Phoenix consulted, doing debridement at bedside - Will f/u wound cultures for sensitivities - Dr. Tom following #Asymptomatic bacteruria - Unclear why UA was sent, patient denies urinary symptoms. #Diabetes - HgbA1C 12.8 - Insulin sliding scale - Glargine 10u qhs - Consult Krista diabetes education - Possible discharge on metformin. DVT: heparin GI: None Result Diagram: 05/08/18 0435 05/08/18 043 Subjective 24 Hr Interval Summary Free Text/Dictation Patient doing well. Ambulating well after debridement No acute complaints. Exam/Review of Systems Exam Vitals Vital Signs Date Temp Pulse Resp B/P (MAP) Pulse Ox O2 O2 Flow FiO2 Time Delivery Rate 05/08/18 97.1 89 20 138/87 98 14:22 (104) 05/07/18 Room Air 16:03 Intake and Output 05/07/18 05/07/18 05/08/18 1515:00 23:00 07:00 IntakeIntake Total 460 ml 350 ml OutputOutput Total 1600 ml 1400 ml BalanceBalance -1140 ml -1050 ml Exam Gen: Well developed man in no acute distress Eyes: PERRL, no icterus HEENT: Moist mucous membranes, clear oropharynx Neck: Soft, no lymphadenopathy, supple Card: Regular rate and rhythm, no murmurs Pulm: Clear to auscultation bilaterally Abd: Soft, nontender, nondistended. No hepatosplenomegaly. Ext: L leg 2+ pitting edema to knee, R leg no significant edema. 2+ PT pulses bilaterally. Skin: Bilateral feet bandaged. Results Results 24hrs Laboratory Tests Test 05/07/18 18:50 05/07/18 19:22 05/07/18 22:07 05/08/18 01:24 Bedside Glucose 114 213 158 Lactic Acid Level 1.5 Test 05/08/18 04:32 05/08/18 04:35 05/08/18 08:33 05/08/18 13:22 Erythrocyte 35 H Sedimentation Rate C-Reactive Protein 2.8 H White Blood Count 7.6 Red Blood Count 4.46 L Hemoglobin 13.7 L Hematocrit 40.1 L Mean Corpuscular Volume 89.9 Mean Corpuscular 30.7 Hemoglobin Mean Corpuscular 34.2 Hemoglobin Concent Red Cell Distribution 11.4 L Width Platelet Count 266 Mean Platelet Volume 9.6 Immature Granulocytes % 0.300 Neutrophils % 53.6 Lymphocytes % 32.3 Monocytes % 10.6 Eosinophils % 2.2 Basophils % 1.0 Nucleated Red Blood 0.0 Cells % Immature Granulocytes # 0.020 Neutrophils # 4.1 Lymphocytes # 2.5 Monocytes # 0.8 Eosinophils # 0.2 Basophils # 0.1 Nucleated Red Blood 0.0 Cells # Sodium Level 139 Potassium Level 4.1 Chloride Level 105 Carbon Dioxide Level 26 Anion Gap 8 Blood Urea Nitrogen 20 Creatinine 0.76 Est Glomerular Filtrat > 60 Rate mL/min Glucose Level 114 # Hemoglobin A1c 12.8 H Calcium Level 8.8 Phosphorus Level 3.9 Magnesium Level 1.9 Total Bilirubin 0.4 Direct Bilirubin 0.00 Indirect Bilirubin 0.4 Aspartate Amino 13 L Transf (AST/SGOT) Alanine 12 L Aminotransferase (ALT/SG PT) Alkaline Phosphatase 101 Total Protein 6.6 Albumin 3.3 Globulin 3.30 H Albumin/Globulin Ratio 1.00 Triglycerides Level 169 H Cholesterol Level 139 LDL Cholesterol, 72 Calculated HDL Cholesterol 33 Cholesterol/HDL Ratio 4.2 Thyroid Stimulating 1.470 Hormone (TSH) Bedside Glucose 118 223 H Medications Medication Current Medications IV Flush (NS 3 ml) 3 ml PER PROTOCOL IV ; Start 05/07/18 at 15:00 Ondansetron HCl (Zofran Inj) 4 mg Q6H PRN IV NAUSEA/VOMITING; Start 05/07/18 at 15:00 Acetaminophen (Tylenol Tab) 650 mg Q6H PRN PO .PAIN 1-3 OR TEMP; Start 05/07/18 at 15:00 Heparin Sodium (Porcine) (Heparin (5000 Units/1ml)) 5,000 unit Q8 SC Last administered on 05/08/18at 14:32; Admin Dose 5,000 UNIT; Start 05/07/18 at 22:00 Vancomycin HCl (Vanco Iv Per Pharmacy) VANCOMYCIN PER PHARMACY PER PROTOCOL XX ; Start 05/07/18 at 15:30 Piperacillin Sod/ Tazobactam Sod 100 ml @ 200 mls/hr Q6 IVPB Last administered on 05/08/18at 13:23; Admin Dose 200 MLS/HR; Start 05/07/18 at 18:00 Diagnostic Test (Pha) (Accu-Chek) 1 ea 02 XX ; Start 05/08/18 at 02:00 Insulin Aspart (Novolog Insulin Pen) NOVOLOG *MODERATE* ALGORITHM WITH MEALS BEDTIME SC Last administered on 05/08/18at 13:26; Admin Dose 6 UNIT; Start 05/07/18 at 18:00 Insulin Glargine (Lantus) 10 units DAILY@2000 SC Last administered on 05/07/18at 22:14; Admin Dose 10 UNITS; Start 05/07/18 at 20:00 Miscellaneous Information 1 ea NOTE XX ; Start 05/07/18 at 16:00 Glucose (Glutose) 15 gm Q15M PRN PO DECREASED GLUCOSE; Start 05/07/18 at 16:00 Glucose (Glutose) 22.5 gm Q15M PRN PO DECREASED GLUCOSE; Start 05/07/18 at 16:00 Dextrose (D50w Syringe) 25 ml Q15M PRN IV DECREASED GLUCOSE; Start 05/07/18 at 16:00 Dextrose (D50w Syringe) 50 ml Q15M PRN IV DECREASED GLUCOSE; Start 05/07/18 at 16:00 Glucagon (Glucagen) 1 mg Q15M PRN IM DECREASED GLUCOSE; Start 05/07/18 at 16:00 Glucose (Glutose) 15 gm Q15M PRN BUCCAL DECREASED GLUCOSE; Start 05/07/18 at 1 6:00 Guaifenesin (Robitussin Liquid Cup) 200 mg Q4H PRN PO koff koff Last administered on 05/07/18at 18:54; Admin Dose 200 MG; Start 05/07/18 at 17:00 Vancomycin HCl 250 ml @ 125 mls/hr Q8H IVPB Last administered on 05/08/18at 14:32; Admin Dose 125 MLS/HR; Start 05/07/18 at 22:00 Sodium Hypochlorite (Dakins Diluted ()) 1 ml DAILY TP Last administered on 05/08/18 13:24; Admin Dose 1 ML; Start 05/08/18 at 09:00 Collagenase (Santyl) 1 applic DAILY TOP Last administered on 05/08/18 13:24; Admin Dose 1 APPLIC; Start 05/08/18 at 09:00 Fluconazole (Diflucan) 200 mg DAILY PO Last administered on 05/08/18 13:48; Admin Dose 200 MG; Start 05/08/18 at 10:30 Miscellaneous Information (*Rx Drug Level Order Reminder*) 1 2100 ONCE XX ; Start 05/08/18 at 21:00; Stop 05/08/18 at 21:01 MADI LUNDBERG MD May 08, 2018 16:59
[2018-05-08 20:07] VITALS: BP 162/102; PULSE 87; RESP 18
[2018-05-08] MEDS: INSULIN GLARGINE [LANTus] (100 UNITS/ML) SYG SC SCH (21:18)
[2018-05-09 01:56] VITALS: BP 132/86; PULSE 76; RESP 18
[2018-05-09] MEDS: ACCU-CHEK XX SCH (02:00)
[2018-05-09] MEDS: PIPER-TAZO 3.375 GM IV (PMX) 100 ML IVPB SCH ×2 (05:17→12:12)
[2018-05-09] MEDS: HEPARIN 5,000 UNIT/1 ML VIAL SC SCH ×3 (05:26→22:29)
[2018-05-09] MEDS: VANCOMYCIN 1 GM 250 ML IVPB SCH ×3 (06:09→22:20)
[2018-05-09 07:52] VITALS: BP 140/86; PULSE 74; RESP 17
[2018-05-09] MEDS: FLUCONAZOLE 200 MG TAB PO SCH (08:36)
[2018-05-09] MEDS: DAKINS 0.0125%(1/40) 473 ML SOLUTION TP SCH (08:44)
[2018-05-09] MEDS: COLLAGENASE 5 GM (UD JAR) TOP SCH (08:44)
[2018-05-09] MEDS: INSULIN ASPART [NOVOLOG] 3 ML PEN SC SCH ×5 (08:44→21:00)
--- NOTE | 2018-05-09 13:30 | PN ---
Date/Time of Note Date/Time of Note DATE: 05/09/18 TIME: 13:27 Assessment/Plan VTE Prophylaxis Risk score (from Nsg)>0 risk: 1 SCD applied (from Ns): No SCD contraindicated: low risk/ambulating Pharmacological prophylaxis: heparin Lines/Catheters IV [facility]from [facility] Saline Lock Urinary Cath still in place: No Assessment/Plan Assessment/Plan 47 yo man newly diagnosed diabetes presents with diabetic foot ulcers #Foot ulcers - MRI positive for L foot osteomyelitis - roberto Poole - Dr Phoenix following, debridement on admission. - Will f/u wound cultures for sensitivities. - Plan for 4-6 weeks of antibiotics. Depending on sensitivities ideally would be able to go on oral therapy, but may need PICC line. - Dr. Tom following #Asymptomatic bacteruria and candiduria - antifungals ordered by ID. #Diabetes - HgbA1C 12.8 - Insulin sliding scale - Glargine 10u qhs - Consult Krista diabetes education - Possible discharge on metformin. DVT: heparin GI: None Result Diagram: 05/09/1842805/09/18428 Subjective 24 Hr Interval Summary Free Text/Dictation No acute overnight events. Patient feeling well. Bearing weight; reports being able to walk with no problems. Exam/Review of Systems Exam Vitals Vital Signs Date Temp Pulse Resp B/P (MAP) Pulse Ox O2 O2 Flow FiO2 Time Delivery Rate 05/09/18 98.7 74 17 140/86 96 Room Air 07:52 (104) Intake and Output 05/08/18 05/08/18 05/09/18 1515:00 23:00 07:00 IntakeIntake Total 1430 ml 830 ml 450 ml OutputOutput Total 200 ml 500 ml BalanceBalance 1230 ml 830 ml -50 ml Exam Gen: Well developed man in no acute distress Eyes: PERRL, no icterus HEENT: Moist mucous membranes, clear oropharynx Neck: Soft, no lymphadenopathy, supple Card: Regular rate and rhythm, no murmurs Pulm: Clear to auscultation bilaterally Abd: Soft, nontender, nondistended. No hepatosplenomegaly. Ext: L leg 2+ pitting edema to knee, R leg no significant edema. 2+ PT pulses bilaterally. Skin: Bilateral feet bandaged. Results Results 24hrs Laboratory Tests Test 05/08/18 17:48 05/08/18 20:23 05/08/18 21:14 05/09/18 02:00 Bedside Glucose 214 256 H 199 Vancomycin Level Trough 13.4 Test 05/09/18 04:29 05/09/18 08:14 05/09/18 12:38 White Blood Count 5.4 # Red Blood Count 4.60 L Hemoglobin 14.0 Hematocrit 41.6 L Mean Corpuscular Volume 90.4 Mean Corpuscular 30.4 Hemoglobin Mean Corpuscular 33.7 Hemoglobin Concent Red Cell Distribution 11.2 L Width Platelet Count 268 Mean Platelet Volume 9.6 Immature Granulocytes % 0.200 Neutrophils % 42.8 Lymphocytes % 41.9 Monocytes % 11.0 Eosinophils % 2.8 Basophils % 1.3 Nucleated Red Blood 0.0 Cells % Immature Granulocytes # 0.010 Neutrophils # 2.3 Lymphocytes # 2.2 Monocytes # 0.6 Eosinophils # 0.2 Basophils # 0.1 Nucleated Red Blood 0.0 Cells # Sodium Level 138 Potassium Level 4.0 Chloride Level 104 Carbon Dioxide Level 26 Anion Gap 8 Blood Urea Nitrogen 14 Creatinine 0.82 Est Glomerular Filtrat > 60 Rate mL/min Glucose Level 194 Calcium Level 9.0 Phosphorus Level 4.1 Magnesium Level 1.9 Bedside Glucose 193 218 Medications Medication Current Medications IV Flush (NS 3 ml) 3 ml PER PROTOCOL IV ; Start 05/07/18 at 15:00 Ondansetron HCl (Zofran Inj) 4 mg Q6H PRN IV NAUSEA/VOMITING; Start 05/07/18 at 15:00 Acetaminophen (Tylenol Tab) 650 mg Q6H PRN PO .PAIN 1-3 OR TEMP; Start 05/07/18 at 15:00 Heparin Sodium (Porcine) (Heparin (5000 Units/1ml)) 5,000 unit Q8 SC Last administered on 05/09/18at 05:26; Admin Dose 5,000 UNIT; Start 05/07/18 at 22:00 Vancomycin HCl (Vanco Iv Per Pharmacy) VANCOMYCIN PER PHARMACY PER PROTOCOL XX ; Start 05/07/18 at 15:30 Piperacillin Sod/ Tazobactam Sod 100 ml @ 200 mls/hr Q6 IVPB Last administered on 05/09/18at 12:12; Admin Dose 200 MLS/HR; Start 05/07/18 at 18:00 Diagnostic Test (Pha) (Accu-Chek) 1 ea 02 XX ; Start 05/08/18 at 02:00 Insulin Aspart (Novolog Insulin Pen) NOVOLOG *MODERATE* ALGORITHM WITH MEALS BEDTIME SC Last administered on 05/09/18 08:44; Admin Dose 4 UNIT; Start 05/07/18 at 18:00 Insulin Glargine (Lantus) 10 units DAILY@2000 SC Last administered on 05/08/18at 21:18; Admin Dose 10 UNITS; Start 05/07/18 at 20:00 Miscellaneous Information 1 ea NOTE XX ; Start 05/07/18 at 16:00 Glucose (Glutose) 15 gm Q15M PRN PO DECREASED GLUCOSE; Start 05/07/18 at 16:00 Glucose (Glutose) 22.5 gm Q15M PRN PO DECREASED GLUCOSE; Start 05/07/18 at 16:00 Dextrose (D50w Syringe) 25 ml Q15M PRN IV DECREASED GLUCOSE; Start 05/07/18 at 16:00 Dextrose (D50w Syringe) 50 ml Q15M PRN IV DECREASED GLUCOSE; Start 05/07/18 at 16:00 Glucagon (Glucagen) 1 mg Q15M PRN IM DECREASED GLUCOSE; Start 05/07/18 at 16:00 Glucose (Glutose) 15 gm Q15M PRN BUCCAL DECREASED GLUCOSE; Start 05/07/18 at 16:00 Guaifenesin (Robitussin Liquid Cup) 200 mg Q4H PRN PO sabrina pompajosue Last administered on 05/07/18at 18:54; Admin Dose 200 MG; Start 05/07/18 at 17:00 Vancomycin HCl 250 ml @ 125 mls/hr Q8H IVPB Last administered on 05/09/18 06:09; Admin Dose 125 MLS/HR; Start 05/07/18 at 22:00 Sodium Hypochlorite (Dakins Diluted (40)) 1 ml DAILY TP Last administered on 05/09/18 08:44; Admin Dose 1 ML; Start 05/08/18 at 09:00 Collagenase (Santyl) 1 applic DAILY TOP Last administered on 05/09/18 08:44; Admin Dose 1 APPLIC; Start 05/08/18 at 09:00 Fluconazole (Diflucan) 200 mg DAILY PO Last administered on 05/09/18 08:36; Admin Dose 200 MG; Start 05/08/18 at 10:30 MADI LUNDBERG MD May 09, 2018 13:30
--- NOTE | 2018-05-09 14:15 | CONS ---
Assessment/Plan Assessment/Plan Hospital Course (Demo Recall) Patient is alert feels good denies pain no fevers overnight. WBC 5.4, no shift no bands ESR yesterday 35 BUN 14 creatinine 0.82 Microbiology: Urine culture on admission grew Nette albicans. Wound culture growing strep agalactiae staph species and staph aureus Antimicrobials: Patient is on fluconazole Vanco and Zosyn Physical examination: Well-developed well-nourished middle-aged man who is alert in no distress. Head atraumatic normocephalic neck is supple chest rise symmetrical breath sounds clear heart S1-S2 abdomen soft bowel sounds present extremities with bilateral lower extremities dressing intact Assessment: 1. Bilateral lower extremities diabetic foot ulceration 2. Left foot osteomyelitis 3. Diabetic neuropathy Plan: Patient remains stable, will discontinue Zosyn, continue vancomycin and await for final cultures, anticipate discharge on antibiotics for 4-6 weeks he may be discharged on oral Zyvox Consultation Date/Type/Reason Admit Date/Time May 07, 2018 at 13:47 Initial Consult Date Type of Consult id Date/Time of Note DATE: 05/09/18 TIME: 14:15 Exam/Review of Systems Exam Vitals Vital Signs Date Temp Pulse Resp B/P (MAP) Pulse Ox O2 O2 Flow FiO2 Time Delivery Rate 05/09/18 98.7 74 17 140/86 96 Room Air 07:52 (104) Intake and Output 05/08/18 05/08/18 05/09/18 1515:00 23:00 07:00 IntakeIntake Total 1430 ml 830 ml 450 ml OutputOutput Total 200 ml 500 ml BalanceBalance 1230 ml 830 ml -50 ml Results Result Diagram: 05/09/18 0429 05/09/18 0429 Results 24hrs Laboratory Tests Test 05/08/18 17:48 05/08/18 20:23 05/08/18 21:14 05/09/18 02:00 Bedside Glucose 214 256 H 199 Vancomycin Level Trough 13.4 Test 05/09/18 04:29 05/09/18 08:14 05/09/18 12:38 White Blood Count 5.4 # Red Blood Count 4.60 L Hemoglobin 14.0 Hematocrit 41.6 L Mean Corpuscular Volume 90.4 Mean Corpuscular 30.4 Hemoglobin Mean Corpuscular 33.7 Hemoglobin Concent Red Cell Distribution 11.2 L Width Platelet Count 268 Mean Platelet Volume 9.6 Immature Granulocytes % 0.200 Neutrophils % 42.8 Lymphocytes % 41.9 Monocytes % 11.0 Eosinophils % 2.8 Basophils % 1.3 Nucleated Red Blood 0.0 Cells % Immature Granulocytes # 0.010 Neutrophils # 2.3 Lymphocytes # 2.2 Monocytes # 0.6 Eosinophils # 0.2 Basophils # 0.1 Nucleated Red Blood 0.0 Cells # Sodium Level 138 Potassium Level 4.0 Chloride Level 104 Carbon Dioxide Level 26 Anion Gap 8 Blood Urea Nitrogen 14 Creatinine 0.82 Est Glomerular Filtrat > 60 Rate mL/min Glucose Level 194 Calcium Level 9.0 Phosphorus Level 4.1 Magnesium Level 1.9 Bedside Glucose 193 218 Medications Medication Current Medications IV Flush (NS 3 ml) 3 ml PER PROTOCOL IV ; Start 05/07/18 at 15:00 Ondansetron HCl (Zofran Inj) 4 mg Q6H PRN IV NAUSEA/VOMITING; Start 05/07/18 at 15:00 Acetaminophen (Tylenol Tab) 650 mg Q6H PRN PO .PAIN 1-3 OR TEMP; Start 05/07/18 at 15:00 Heparin Sodium (Porcine) (Heparin (5000 Units/1ml)) 5,000 unit Q8 SC Last administered on 05/09/18at 05:26; Admin Dose 5,000 UNIT; Start 05/07/18 at 22:00 Vancomycin HCl (Vanco Iv Per Pharmacy) VANCOMYCIN PER PHARMACY PER PROTOCOL XX ; Start 05/07/18 at 15:30 Piperacillin Sod/ Tazobactam Sod 100 ml @ 200 mls/hr Q6 IVPB Last administered on 05/09/18at 12:12; Admin Dose 200 MLS/HR; Start 05/07/18 at 18:00 Diagnostic Test (Pha) (Accu-Chek) 1 ea 02 XX ; Start 05/08/18 at 02:00 Insulin Aspart (Novolog Insulin Pen) NOVOLOG *MODERATE* ALGORITHM WITH MEALS BEDTIME SC Last administered on 05/09/18at 13:33; Admin Dose 4 UNIT; Start 05/07/18 at 18:00 Insulin Glargine (Lantus) 10 units DAILY@2000 SC Last administered on 05/08/18at 21:18; Admin Dose 10 UNITS; Start 05/07/18 at 20:00 Miscellaneous Information 1 ea NOTE XX ; Start 05/07/18 at 16:00 Glucose (Glutose) 15 gm Q15M PRN PO DECREASED GLUCOSE; Start 05/07/18 at 16:00 Glucose (Glutose) 22.5 gm Q15M PRN PO DECREASED GLUCOSE; Start 05/07/18 at 16:00 Dextrose (D50w Syringe) 25 ml Q15M PRN IV DECREASED GLUCOSE; Start 05/07/18 at 16:00 Dextrose (D50w Syringe) 50 ml Q15M PRN IV DECREASED GLUCOSE; Start 05/07/18 at 16:00 Glucagon (Glucagen) 1 mg Q15M PRN IM DECREASED GLUCOSE; Start 05/07/18 at 16:00 Glucose (Glutose) 15 gm Q15M PRN BUCCAL DECREASED GLUCOSE; Start 05/07/18 at 16:00 Guaifenesin (Robitussin Liquid Cup) 200 mg Q4H PRN PO koff koff Last administered on 05/07/18at 18:54; Admin Dose 200 MG; Start 05/07/18 at 17:00 Vancomycin HCl 250 ml @ 125 mls/hr Q8H IVPB Last administered on 05/09/18at 06:09; Admin Dose 125 MLS/HR; Start 05/07/18 at 22:00 Sodium Hypochlorite (Dakins Diluted (40)) 1 ml DAILY TP Last administered on 05/09/18at 08:44; Admin Dose 1 ML; Start 05/08/18 at 09:00 Collagenase (Santyl) 1 applic DAILY TOP Last administered on 05/09/18at 08:44; Admin Dose 1 APPLIC; Start 05/08/18 at 09:00 Fluconazole (Diflucan) 200 mg DAILY PO Last administered on 05/09/18at 08:36; Admin Dose 200 MG; Start 05/08/18 at 10:30 Insulin Aspart (Novolog Insulin Pen) 5 unit WITH MEALS SC ; Start 05/09/18 at 18:00 JENNIFER GILL NP May 09, 2018 14:15
[2018-05-09 14:41] VITALS: BP 132/86; PULSE 80; RESP 18
[2018-05-09 19:55] VITALS: BP 151/95; PULSE 83; RESP 18
[2018-05-09] MEDS: INSULIN GLARGINE [LANTus] (100 UNITS/ML) SYG SC SCH (21:06)
[2018-05-10 01:55] VITALS: BP 114/75; PULSE 76; RESP 18
[2018-05-10] MEDS: ACCU-CHEK XX SCH (02:00)
[2018-05-10] MEDS: VANCOMYCIN 1 GM 250 ML IVPB SCH (06:12)
[2018-05-10] MEDS: HEPARIN 5,000 UNIT/1 ML VIAL SC SCH ×3 (06:17→21:58)
[2018-05-10] MEDS: FLUCONAZOLE 200 MG TAB PO SCH (08:21)
[2018-05-10] MEDS: COLLAGENASE 5 GM (UD JAR) TOP SCH (08:21)
[2018-05-10] MEDS: INSULIN ASPART [NOVOLOG] 3 ML PEN SC SCH ×7 (08:23→21:00)
[2018-05-10 08:31] VITALS: BP 129/84; PULSE 74; RESP 18
--- NOTE | 2018-05-10 09:12 | CONS ---
Assessment/Plan Assessment/Plan Assessment/Plan (Daily) Bilateral feet diabetic foot ulcer Left lower extremity cellulitis - improving Osteomyelitis left foot DM2 with peripheral neuropathy Edema b/l lower extremities - improved Plan MRI results showed osteomyelitis to the left 5th digit. Patient will need social service consult to obtain health insurance to allow follow up in [facility] wound clinic, patient only has medi-Dwain. Urine Cx showing tanesha albicans. Recommend daily dressing changes with santyl, betadine 4x4 gauze, kerlix and pritesh wrap. X-rays, MRI, and non invasive arterial reviewed. No significant vascular disease. Wound cultures showing staph aureus and strep group B. Anbx per ID recommendations. Tight glycemic control. Recommend diabetes education. Discussed with patient that left 5th digit is at risk for amputation. Patient not amenable to surgical procedure at this time and is desiring salvage. Will continue with local wound care and IV abx. Consultation Date/Type/Reason Admit Date/Time May 07, 2018 at 13:47 Initial Consult Date Date/Time of Note DATE: 05/10/18 TIME: 09:12 24 HR Interval Summary Free Text/Dictation No acute events overnight Exam/Review of Systems Exam Vitals Vital Signs Date Temp Pulse Resp B/P (MAP) Pulse Ox O2 O2 Flow FiO2 Time Delivery Rate 05/10/18 97.9 74 18 129/84 95 Room Air 08:31 (99) Intake and Output 05/09/18 05/09/18 05/10/18 1515:00 23:00 07:00 IntakeIntake Total 830 ml 850 ml 250 ml BalanceBalance 830 ml 850 ml 250 ml Exam DP/PT pulses weakly palpable, Popliteal pulses palpable 2+ pitting edema to bilateral lower extremities Left lower extremity with erythema present Left medial 5th digit ulceration with fibronecrotic wound base 3.5 x 1.5 x 0.3cm, unable to probe to bone there is hyperkeratotic tissue on periphery of wound Left lateral 4th digit ulceration with fibrogranular wound base 1.0 x 0.6 x 0.2cm, unable to probe to bone, maceration appreciated, no purulence appreciated Right dorsal foot ulceration with granular wound bed and scant purulent expressed 0.4 x 0.4 x 0.2cm, unable to probe to bone, no erythema Absent protective sensations 4/5 muscle strength to all compartments of the foot Left foot x-ray IMPRESSION: Prominent soft tissue swelling without evidence of acute osseous abnormality. Consider MRI if there is concern for osteomyelitis. Non invasive arterial studies IMPRESSION: No evidence of significant peripheral arterial disease. L foot MRI IMPRESSION: 1. Soft tissue swelling/ulcer in the fifth digit with osteomyelitis of the fifth middle and distal phalanges. Reactive osteitis in the fifth proximal phala nx with a possible small focus of marrow infiltrative signal in the head, and early osteomyelitis is not excluded. 2. Diffuse subcutaneous edema as detailed above, and diffuse edema in the visualized portions of the intrinsic musculature of the foot which may be neuropathic. R foot X-ray IMPRESSION: Soft tissue swelling without evidence of acute fracture. Results Result Diagram: 05/10/18 0423 05/10/18 0423 Results 24hrs Laboratory Tests Test 05/09/18 12:38 05/09/18 18:01 05/09/18 21:04 05/10/18 04:23 Bedside Glucose 218 257 H 144 White Blood Count 5.5 Red Blood Count 4.65 L Hemoglobin 14.4 Hematocrit 42.5 Mean Corpuscular Volume 91.4 Mean Corpuscular 31.0 Hemoglobin Mean Corpuscular 33.9 Hemoglobin Concent Red Cell Distribution 11.5 Width Platelet Count 285 Mean Platelet Volume 9.6 Immature Granulocytes % 0.400 Neutrophils % 40.2 Lymphocytes % 41.5 Monocytes % 12.1 H Eosinophils % 4.7 Basophils % 1.1 Nucleated Red Blood 0.0 Cells % Immature Granulocytes # 0.020 Neutrophils # 2.2 Lymphocytes # 2.3 Monocytes # 0.7 Eosinophils # 0.3 Basophils # 0.1 Nucleated Red Blood 0.0 Cells # Sodium Level 141 Potassium Level 4.3 Chloride Level 104 Carbon Dioxide Level 29 Anion Gap 8 Blood Urea Nitrogen 13 Creatinine 0.82 Est Glomerular Filtrat > 60 Rate mL/min Glucose Level 139 # Calcium Level 9.5 Test 05/10/18 08:20 Bedside Glucose 141 Medications Medication Current Medications IV Flush (NS 3 ml) 3 ml PER PROTOCOL IV ; Start 05/07/18 at 15:00 Ondansetron HCl (Zofran Inj) 4 mg Q6H PRN IV NAUSEA/VOMITING; Start 05/07/18 at 15:00 Acetaminophen (Tylenol Tab) 650 mg Q6H PRN PO .PAIN 1-3 OR TEMP; Start 05/07/18 at 15:00 Heparin Sodium (Porcine) (Heparin (5000 Units/1ml)) 5,000 unit Q8 SC Last administered on 05/10/18at 06:17; Admin Dose 5,000 UNIT; Start 05/07/18 at 22:00 Vancomycin HCl (Vanco Iv Per Pharmacy) VANCOMYCIN PER PHARMACY PER PROTOCOL XX ; Start 05/07/18 at 15:30 Diagnostic Test (Pha) (Accu-Chek) 1 ea 02 XX ; Start 05/08/18 at 02:00 Insulin Aspart (Novolog Insulin Pen) NOVOLOG *MODERATE* ALGORITHM WITH MEALS BEDTIME SC Last administered on 05/10/18at 08:23; Admin Dose 1 UNIT; Start 05/07/18 at 18:00 Insulin Glargine (Lantus) 10 units DAILY@2000 SC Last administered on 05/09/18at 21:06; Admin Dose 10 UNITS; Start 05/07/18 at 20:00 Miscellaneous Information 1 ea NOTE XX ; Start 05/07/18 at 16:00 Glucose (Glutose) 15 gm Q15M PRN PO DECREASED GLUCOSE; Start 05/07/18 at 16:00 Glucose (Glutose) 22.5 gm Q15M PRN PO DECREASED GLUCOSE; Start 05/07/18 at 16:00 Dextrose (D50w Syringe) 25 ml Q15M PRN IV DECREASED GLUCOSE; Start 05/07/18 at 16:00 Dextrose (D50w Syringe) 50 ml Q15M PRN IV DECREASED GLUCOSE; Start 05/07/18 at 16:00 Glucagon (Glucagen) 1 mg Q15M PRN IM DECREASED GLUCOSE; Start 05/07/18 at 16:00 Glucose (Glutose) 15 gm Q15M PRN BUCCAL DECREASED GLUCOSE; Start 05/07/18 at 16:00 Guaifenesin (Robitussin Liquid Cup) 200 mg Q4H PRN PO koff koff Last administered on 05/07/18at 18:54; Admin Dose 200 MG; Start 05/07/18 at 17:00 Vancomycin HCl 250 ml @ 125 mls/hr Q8H IVPB Last administered on 05/10/18at 06:12; Admin Dose 125 MLS/HR; Start 05/07/18 at 22:00 Sodium Hypochlorite (Dakins Diluted ()) 1 ml DAILY TP Last administered on 05/09/18at 08:44; Admin Dose 1 ML; Start 05/08/18 at 09:00 Collagenase (Santyl) 1 applic DAILY TOP Last administered on 05/10/18 08:21; Ad min Dose 1 APPLIC; Start 05/08/18 at 09:00 Fluconazole (Diflucan) 200 mg DAILY PO Last administered on 05/10/18 08:21; Admin Dose 200 MG; Start 05/08/18 at 10:30 Insulin Aspart (Novolog Insulin Pen) 5 unit WITH MEALS SC Last administered on 05/10/18 08:23; Admin Dose 5 UNIT; Start 05/09/18 at 18:00 ADORE PETIT DPM May 10, 2018 09:12
[2018-05-10] MEDS: DAKINS 0.0125%(1/40) 473 ML SOLUTION TP SCH (10:09)
--- NOTE | 2018-05-10 11:12 | CONS ---
Assessment/Plan Assessment/Plan Hospital Course (Demo Recall) No events, no fevers Microbiology: Urine culture on admission grew Nette albicans. Wound culture growing strep agalactiae staph species and MIKIE Antimicrobials: Fluconazole Vanco Physical examination: Well-developed well-nourished middle-aged man who is alert in no distress. Head atraumatic normocephalic neck is supple chest rise symmetrical breath sounds clear heart S1-S2 abdomen soft bowel sounds present extremities with bilateral lower extremities dressing intact Assessment: 1. Bilateral lower extremities diabetic foot ulceration 2. Left foot osteomyelitis 3. Diabetic neuropathy Plan: Patient remains stable, change Zosyn to Rocephin, continue Diflucan to complete 7 days. Anticipate dc on IV Rocephin or po Zyvox for 6 weeks Consultation Date/Type/Reason Admit Date/Time May 07, 2018 at 13:47 Initial Consult Date Type of Consult id Date/Time of Note DATE: 05/10/18 TIME: 11:07 Exam/Review of Systems Exam Vitals Vital Signs Date Temp Pulse Resp B/P (MAP) Pulse Ox O2 O2 Flow FiO2 Time Delivery Rate 05/10/18 97.9 74 18 129/84 95 Room Air 08:31 (99) Intake and Output 05/09/18 05/09/18 05/10/18 1515:00 23:00 07:00 IntakeIntake Total 830 ml 850 ml 250 ml BalanceBalance 830 ml 850 ml 250 ml Results Result Diagram: 05/10/18 0423 05/10/18 0423 Results 24hrs Laboratory Tests Test 05/09/18 12:38 05/09/18 18:01 05/09/18 21:04 05/10/18 04:23 Bedside Glucose 218 257 H 144 White Blood Count 5.5 Red Blood Count 4.65 L Hemoglobin 14.4 Hematocrit 42.5 Mean Corpuscular Volume 91.4 Mean Corpuscular 31.0 Hemoglobin Mean Corpuscular 33.9 Hemoglobin Concent Red Cell Distribution 11.5 Width Platelet Count 285 Mean Platelet Volume 9.6 Immature Granulocytes % 0.400 Neutrophils % 40.2 Lymphocytes % 41.5 Monocytes % 12.1 H Eosinophils % 4.7 Basophils % 1.1 Nucleated Red Blood 0.0 Cells % Immature Granulocytes # 0.020 Neutrophils # 2.2 Lymphocytes # 2.3 Monocytes # 0.7 Eosinophils # 0.3 Basophils # 0.1 Nucleated Red Blood 0.0 Cells # Sodium Level 141 Potassium Level 4.3 Chloride Level 104 Carbon Dioxide Level 29 Anion Gap 8 Blood Urea Nitrogen 13 Creatinine 0.82 Est Glomerular Filtrat > 60 Rate mL/min Glucose Level 139 # Calcium Level 9.5 Test 05/10/18 08:20 Bedside Glucose 141 Medications Medication Current Medications IV Flush (NS 3 ml) 3 ml PER PROTOCOL IV ; Start 05/07/18 at 15:00 Ondansetron HCl (Zofran Inj) 4 mg Q6H PRN IV NAUSEA/VOMITING; Start 05/07/18 at 15:00 Acetaminophen (Tylenol Tab) 650 mg Q6H PRN PO .PAIN 1-3 OR TEMP; Start 05/07/18 at 15:00 Heparin Sodium (Porcine) (Heparin (5000 Units/1ml)) 5,000 unit Q8 SC Last administered on 05/10/18at 06:17; Admin Dose 5,000 UNIT; Start 05/07/18 at 22:00 Vancomycin HCl (Vanco Iv Per Pharmacy) VANCOMYCIN PER PHARMACY PER PROTOCOL XX ; Start 05/07/18 at 15:30 Diagnostic Test (Pha) (Accu-Chek) 1 ea 02 XX ; Start 05/08/18 at 02:00 Insulin Aspart (Novolog Insulin Pen) NOVOLOG *MODERATE* ALGORITHM WITH MEALS BEDTIME SC Last administered on 05/10/18at 08:23; Admin Dose 1 UNIT; Start 05/07/18 at 18:00 Insulin Glargine (Lantus) 10 units DAILY@2000 SC Last administered on 05/09/18at 21:06; Admin Dose 10 UNITS; Start 05/07/18 at 20:00 Miscellaneous Information 1 ea NOTE XX ; Start 05/07/18 at 16:00 Glucose (Glutose) 15 gm Q15M PRN PO DECREASED GLUCOSE; Start 05/07/18 at 16:00 Glucose (Glutose) 22.5 gm Q15M PRN PO DECREASED GLUCOSE; Start 05/07/18 at 16:00 Dextrose (D50w Syringe) 25 ml Q15M PRN IV DECREASED GLUCOSE; Start 05/07/18 at 1 6:00 Dextrose (D50w Syringe) 50 ml Q15M PRN IV DECREASED GLUCOSE; Start 05/07/18 at 16:00 Glucagon (Glucagen) 1 mg Q15M PRN IM DECREASED GLUCOSE; Start 05/07/18 at 16:00 Glucose (Glutose) 15 gm Q15M PRN BUCCAL DECREASED GLUCOSE; Start 05/07/18 at 16:00 Guaifenesin (Robitussin Liquid Cup) 200 mg Q4H PRN PO sabrina bennett Last administered on 05/07/18at 18:54; Admin Dose 200 MG; Start 05/07/18 at 17:00 Vancomycin HCl 250 ml @ 125 mls/hr Q8H IVPB Last administered on 05/10/18at 06:12; Admin Dose 125 MLS/HR; Start 05/07/18 at 22:00 Sodium Hypochlorite (Dakins Diluted ()) 1 ml DAILY TP Last administered on 05/10/18 10:09; Admin Dose 1 APPLIC; Start 05/08/18 at 09:00 Collagenase (Santyl) 1 applic DAILY TOP Last administered on 05/10/18 08:21; Admin Dose 1 APPLIC; Start 05/08/18 at 09:00 Fluconazole (Diflucan) 200 mg DAILY PO Last administered on 05/10/18at 08:21; Admin Dose 200 MG; Start 05/08/18 at 10:30 Insulin Aspart (Novolog Insulin Pen) 5 unit WITH MEALS SC Last administered on 05/10/18 08:23; Admin Dose 5 UNIT; Start 05/09/18 at 18:00 Miscellaneous Information (*Rx Drug Level Order Reminder*) MEETA TR ON 05/10/18 @ 2,100 ONCE ONCE XX ; Start 05/10/18 at 21:00; Stop 05/10/18 at 21:01 JENNIFER GILL NP May 10, 2018 11:12
[2018-05-10] MEDS ORDERED: FLUC200T PO (12:50)
[2018-05-10] MEDS ORDERED: LINE600T33 PO (12:50)
[2018-05-10] MEDS ORDERED: METF-849 PO (12:50)
--- NOTE | 2018-05-10 12:53 | PDOCDIS ---
Discharge Instructions DIAGNOSIS Discharge Diagnosis Uncontrolled diabetes mellitus Osteomyelitis of the left 5th digit CONDITION [id number] Patient Condition: [id number] Good HOME CARE INSTRUCTIONS: [id number] Special Diet: [id number] Carbohydrate controlled FOLLOW UP/APPOINTMENTS Follow-up Plan 1. Take all medications as prescribed. 2. Continue daily wound dressing changes as instructed. 3. Return to the [facility] clinic as scheduled. If your insurance will not allow you to return to the clinic [id number], [place] [address]) 1. Rankin todos los medicamentos segn lo prescrito. 2. Continuar con los cambios diarios del apsito de la herida segn las instrucciones. 3. Regrese a la clnica de [facility] segn lo programado. Si saravia seguro no le permite regresar a la clnica aqu, vaya a [facility] ([address], [place] [address]) MADI LUNDBERG MD May 10, 2018 12:53
[2018-05-10] MEDS: CEFTRIAXONE 1 GM/50 ML (PMX) 50 ML IVPB SCH (12:58)
[2018-05-10 14:25] VITALS: BP 139/80; PULSE 91; RESP 18
--- NOTE | 2018-05-10 17:36 | PN ---
Date/Time of Note Date/Time of Note DATE: 05/10/18 TIME: 17:34 Assessment/Plan VTE Prophylaxis Risk score (from Nsg)>0 risk: 1 SCD applied (from Ns): No SCD contraindicated: other (no) Pharmacological prophylaxis: NA/contraindicated Pharm contraindication: low risk/ambulating Lines/Catheters IV [facility] Saline Lock Urinary Cath still in place: No Assessment/Plan Assessment/Plan 47 yo man newly diagnosed diabetes presents with diabetic foot ulcers #Foot ulcers - MRI positive for L foot osteomyelitis - roberto Poole - Dr Phoenix following, debridement on admission. - Plan for 4-6 weeks of PO linezolid. - Dr. Tom following #Asymptomatic bacteruria and candiduria - antifungals ordered by ID. #Diabetes - HgbA1C 12.8 - Insulin sliding scale - Glargine 10u qhs - Consult Krista diabetes education - Possible discharge on metformin. DVT: heparin GI: None Dispo: Medically clear for discharge home with PO linezolid and wound care instruction and supplies. Case management consulted for assistance. Result Diagram: 05/10/18 0423 05/10/18 0423 Subjective 24 Hr Interval Summary Free Text/Dictation No acute overnight events. Patient feeling well. Exam/Review of Systems Exam Vitals Vital Signs Date Temp Pulse Resp B/P (MAP) Pulse Ox O2 O2 Flow FiO2 Time Delivery Rate 05/10/18 99.0 91 18 139/80 96 Room Air 14:25 (99) Intake and Output 05/09/18 05/09/18 05/10/18 1515:00 23:00 07:00 IntakeIntake Total 830 ml 850 ml 250 ml BalanceBalance 830 ml 850 ml 250 ml Exam Gen: Well developed man in no acute distress Eyes: PERRL, no icterus HEENT: Moist mucous membranes, clear oropharynx Neck: Soft, no lymphadenopathy, supple Card: Regular rate and rhythm, no murmurs Pulm: Clear to auscultation bilaterally Abd: Soft, nontender, nondistended. Ext: L leg no edema, R leg no significant edema. Skin: R foot bandaged. Dry, clean based ulcer on dorsal L foot. Results Results 24hrs Laboratory Tests Test 05/09/18 18:01 05/09/18 21:04 05/10/18 04:23 05/10/18 08:20 Bedside Glucose 257 H 144 141 White Blood Count 5.5 Red Blood Count 4.65 L Hemoglobin 14.4 Hematocrit 42.5 Mean Corpuscular Volume 91.4 Mean Corpuscular 31.0 Hemoglobin Mean Corpuscular 33.9 Hemoglobin Concent Red Cell Distribution 11.5 Width Platelet Count 285 Mean Platelet Volume 9.6 Immature Granulocytes % 0.400 Neutrophils % 40.2 Lymphocytes % 41.5 Monocytes % 12.1 H Eosinophils % 4.7 Basophils % 1.1 Nucleated Red Blood 0.0 Cells % Immature Granulocytes # 0.020 Neutrophils # 2.2 Lymphocytes # 2.3 Monocytes # 0.7 Eosinophils # 0.3 Basophils # 0.1 Nucleated Red Blood 0.0 Cells # Sodium Level 141 Potassium Level 4.3 Chloride Level 104 Carbon Dioxide Level 29 Anion Gap 8 Blood Urea Nitrogen 13 Creatinine 0.82 Est Glomerular Filtrat > 60 Rate mL/min Glucose Level 139 # Calcium Level 9.5 Test 05/10/18 12:58 05/10/18 17:19 Bedside Glucose 170 225 H Medications Medication Current Medications IV Flush (NS 3 ml) 3 ml PER PROTOCOL IV ; Start 05/07/18 at 15:00 Ondansetron HCl (Zofran Inj) 4 mg Q6H PRN IV NAUSEA/VOMITING; Start 05/07/18 at 15:00 Acetaminophen (Tylenol Tab) 650 mg Q6H PRN PO .PAIN 1-3 OR TEMP; Start 05/07/18 at 15:00 Heparin Sodium (Porcine) (Heparin (5000 Units/1ml)) 5,000 unit Q8 SC Last ad ministered on 05/10/18at 14:59; Admin Dose 5,000 UNIT; Start 05/07/18 at 22:00 Diagnostic Test (Pha) (Accu-Chek) 1 ea 02 XX ; Start 05/08/18 at 02:00 Insulin Aspart (Novolog Insulin Pen) NOVOLOG *MODERATE* ALGORITHM WITH MEALS BEDTIME SC Last administered on 05/10/18at 17:21; Admin Dose 6 UNIT; Start at 18:00 Insulin Glargine (Lantus) 10 units DAILY@2000 SC Last administered on 05/09/18at 21:06; Admin Dose 10 UNITS; Start 05/07/18 at 20:00 Miscellaneous Information 1 ea NOTE XX ; Start 05/07/18 at 16:00 Glucose (Glutose) 15 gm Q15M PRN PO DECREASED GLUCOSE; Start 05/07/18 at 16:00 Glucose (Glutose) 22.5 gm Q15M PRN PO DECREASED GLUCOSE; Start 05/07/18 at 16:00 Dextrose (D50w Syringe) 25 ml Q15M PRN IV DECREASED GLUCOSE; Start 05/07/18 at 16:00 Dextrose (D50w Syringe) 50 ml Q15M PRN IV DECREASED GLUCOSE; Start 05/07/18 at 16:00 Glucagon (Glucagen) 1 mg Q15M PRN IM DECREASED GLUCOSE; Start 05/07/18 at 16:00 Glucose (Glutose) 15 gm Q15M PRN BUCCAL DECREASED GLUCOSE; Start 05/07/18 at 16: 00 Guaifenesin (Robitussin Liquid Cup) 200 mg Q4H PRN PO koff koff Last administered on 05/07/18at 18:54; Admin Dose 200 MG; Start 05/07/18 at 17:00 Sodium Hypochlorite (Dakins Diluted (/40)) 1 ml DAILY TP Last administered on 05/10/18 10:09; Admin Dose 1 APPLIC; Start 05/08/18 at 09:00 Collagenase (Santyl) 1 applic DAILY TOP Last administered on 05/10/18 08:21; Admin Dose 1 APPLIC; Start 05/08/18 at 09:00 Fluconazole (Diflucan) 200 mg DAILY PO Last administered on 05/10/18 08:21; Admin Dose 200 MG; Start 05/08/18 at 10:30 Insulin Aspart (Novolog Insulin Pen) 5 unit WITH MEALS SC Last administered on 05/10/18 17:22; Admin Dose 5 UNIT; Start 05/09/18 at 18:00 Ceftriaxone Sodium 50 ml @ 100 mls/hr Q24H IVPB Last administered on 05/10/18 12:58; Admin Dose 100 MLS/HR; Start 05/10/18 at 12:00 MADI LUNDBERG MD May 10, 2018 17:36
[2018-05-10 19:36] VITALS: BP 122/80; PULSE 87; RESP 18
[2018-05-10] MEDS: INSULIN GLARGINE [LANTus] (100 UNITS/ML) SYG SC SCH (21:58)
[2018-05-11 01:47] VITALS: BP 115/70; PULSE 81; RESP 18
[2018-05-11] MEDS: ACCU-CHEK XX SCH (02:00)
[2018-05-11] MEDS: HEPARIN 5,000 UNIT/1 ML VIAL SC SCH ×3 (06:31→22:13)
[2018-05-11 07:35] VITALS: BP 120/78; PULSE 90; RESP 18
[2018-05-11] MEDS: INSULIN ASPART [NOVOLOG] 3 ML PEN SC SCH ×6 (07:44→21:17)
[2018-05-11] MEDS: DAKINS 0.0125%(1/40) 473 ML SOLUTION TP SCH (08:04)
[2018-05-11] MEDS: COLLAGENASE 5 GM (UD JAR) TOP SCH (08:04)
[2018-05-11] MEDS: FLUCONAZOLE 200 MG TAB PO SCH (08:04)
[2018-05-11] MEDS: CEFTRIAXONE 1 GM/50 ML (PMX) 50 ML IVPB SCH (12:09)
--- NOTE | 2018-05-11 13:25 | PN ---
Date/Time of Note Date/Time of Note DATE: 05/11/18 TIME: 13:22 Assessment/Plan VTE Prophylaxis Risk score (from Nsg)>0 risk: 1 SCD applied (from Ns): No SCD contraindicated: other (no) Pharmacological prophylaxis: heparin Lines/Catheters IV [facility] Type [facility]from [facility]): Saline Lock Urinary Cath still in place: No Assessment/Plan Assessment/Plan 47 yo man newly diagnosed diabetes presents with diabetic foot ulcers #Foot ulcers - MRI positive for L foot osteomyelitis - roberto Poole while in house. - Dr Phoenix following, debridement on admission. - Plan for 4-6 weeks of PO linezolid on discharge. - Dr. Tom following #Asymptomatic bacteruria and candiduria - antifungals ordered by ID. #Diabetes - HgbA1C 12.8 - Previously on glargine and aspart. Will try switching to metformin inpatient to see if he remains euglycemic. - Seen by Krista, diabetes education DVT: heparin GI: None Dispo: Medically clear for discharge home with PO linezolid and wound care instruction and supplies. But currently has restricted Medi-Dwain. Pending approval for full scope Medi-Dwain. Result Diagram: 05/11/18 0435 05/11/18 043 Subjective 24 Hr Interval Summary Free Text/Dictation No acute overnight events. Patient feeling well, no complaints. Exam/Review of Systems Exam Vitals Vital Signs Date Temp Pulse Resp B/P (MAP) Pulse Ox O2 O2 Flow FiO2 Time Delivery Rate 05/11/18 98.3 90 18 120/78 96 Room Air 07:35 (92) Intake and Output 05/10/18 05/10/18 05/11/18 1515:00 23:00 07:00 IntakeIntake Total 1210 ml 650 ml 240 ml BalanceBalance 1210 ml 650 ml 240 ml Exam Gen: Well developed man in no acute distress Eyes: PERRL, no icterus HEENT: Moist mucous membranes, clear oropharynx Neck: Soft, no lymphadenopathy, supple Card: Regular rate and rhythm, no murmurs Pulm: Clear to auscultation bilaterally Abd: Soft, nontender, nondistended. Ext: L leg no edema, R leg no significant edema. Skin: R foot bandaged. Dry, clean based ulcer on dorsal L foot. Results Results 24hrs Laboratory Tests Test 05/10/18 17:19 05/10/18 21:55 05/11/18 04:35 05/11/18 07:41 Bedside Glucose 225 H 131 147 White Blood Count 5.9 Red Blood Count 4.81 Hemoglobin 15.0 Hematocrit 43.9 Mean Corpuscular Volume 91.3 Mean Corpuscular 31.2 Hemoglobin Mean Corpuscular 34.2 Hemoglobin Concent Red Cell Distribution 11.5 Width Platelet Count 278 Mean Platelet Volume 9.3 Immature Granulocytes % 0.200 Neutrophils % 44.1 Lymphocytes % 37.5 Monocytes % 11.4 H Eosinophils % 5.6 Basophils % 1.2 Nucleated Red Blood 0.0 Cells % Immature Granulocytes # 0.010 Neutrophils # 2.6 Lymphocytes # 2.2 Monocytes # 0.7 Eosinophils # 0.3 Basophils # 0.1 Nucleated Red Blood 0.0 Cells # Sodium Level 141 Potassium Level 4.2 Chloride Level 104 Carbon Dioxide Level 29 Anion Gap 8 Blood Urea Nitrogen 14 Creatinine 0.87 Est Glomerular Filtrat > 60 Rate mL/min Glucose Level 163 Calcium Level 9.4 Test 05/11/18 12:12 Bedside Glucose 218 Medications Medication Current Medications IV Flush (NS 3 ml) 3 ml PER PROTOCOL IV ; Start 05/07/18 at 15:00 Ondansetron HCl (Zofran Inj) 4 mg Q6H PRN IV NAUSEA/VOMITING; Start 05/07/18 at 15:00 Acetaminophen (Tylenol Tab) 650 mg Q6H PRN PO .PAIN 1-3 OR TEMP; Start 05/07/18 at 15:00 Heparin Sodium (Porcine) (Heparin (5000 Units/1ml)) 5,000 unit Q8 SC Last administered on 05/11/18at 06:31; Admin Dose 5,000 UNIT; Start 05/07/18 at 22:00 Diagnostic Test (Pha) (Accu-Chek) 1 ea 02 XX ; Start 05/08/18 at 02:00 Insulin Aspart (Novolog Insulin Pen) NOVOLOG *MODERATE* ALGORITHM WITH MEALS BEDTIME SC Last administered on 05/11/18at 12:14; Admin Dose 4 UNIT; Start 05/07/18 at 18:00 Insulin Glargine (Lantus) 10 units DAILY@2000 SC Last administered on 05/10/18at 21:58; Admin Dose 10 UNITS; Start 05/07/18 at 20:00 Miscellaneous Information 1 ea NOTE XX ; Start 05/07/18 at 16:00 Glucose (Glutose) 15 gm Q15M PRN PO DECREASED GLUCOSE; Start 05/07/18 at 16:00 Glucose (Glutose) 22.5 gm Q15M PRN PO DECREASED GLUCOSE; Start 05/07/18 at 16:00 Dextrose (D50w Syringe) 25 ml Q15M PRN IV DECREASED GLUCOSE; Start 05/07/18 at 16:00 Dextrose (D50w Syringe) 50 ml Q15M PRN IV DECREASED GLUCOSE; Start 05/07/18 at 16:00 Glucagon (Glucagen) 1 mg Q15M PRN IM DECREASED GLUCOSE; Start 05/07/18 at 16:00 Glucose (Glutose) 15 gm Q15M PRN BUCCAL DECREASED GLUCOSE; Start 05/07/18 at 16:00 Guaifenesin (Robitussin Liquid Cup) 200 mg Q4H PRN PO alethaff sabrina Last adm inistered on 05/07/18at 18:54; Admin Dose 200 MG; Start 05/07/18 at 17:00 Sodium Hypochlorite (Dakins Diluted (1/40)) 1 ml DAILY TP Last administered on 05/11/18 08:04; Admin Dose 1 APPLIC; Start 05/08/18 at 09:00 Collagenase (Santyl) 1 applic DAILY TOP Last administered on 05/11/18 08:04; Admin Dose 1 APPLIC; Start 05/08/18 at 09:00 Fluconazole (Diflucan) 200 mg DAILY PO Last administered on 05/11/18 08:04; Admin Dose 200 MG; Start 05/08/18 at 10:30 Insulin Aspart (Novolog Insulin Pen) 5 unit WITH MEALS SC Last administered on 05/11/18 12:15; Admin Dose 5 UNIT; Start 05/09/18 at 18:00 Ceftriaxone Sodium 50 ml @ 100 mls/hr Q24H IVPB Last administered on 05/11/18 12:09; Admin Dose 100 MLS/HR; Start 05/10/18 at 12:00 MADI LUNDBERG MD May 11, 2018 13:25
[2018-05-11 14:10] VITALS: BP 123/82; PULSE 85; RESP 16
--- NOTE | 2018-05-11 14:25 | CONS ---
Assessment/Plan Assessment/Plan Hospital Course (Demo Recall) No events looks comfortable Microbiology: Urine culture on admission grew Nette albicans. Wound culture growing strep agalactiae staph species and MKIIE Antimicrobials: Fluconazole Rocephin Physical examination: Well-developed well-nourished middle-aged man who is alert in no distress. Head atraumatic normocephalic neck is supple chest rise symmetrical breath sounds clear heart S1-S2 abdomen soft bowel sounds present extremities with bilateral lower extremities dressing intact Assessment: 1. Bilateral lower extremities diabetic foot ulceration 2. Left foot osteomyelitis 3. Diabetic neuropathy Plan: Patient remains stable, pending dc on IV Rocephin or po Zyvox for 6 weeks Consultation Date/Type/Reason Admit Date/Time May 07, 2018 at 13:47 Initial Consult Date Type of Consult id Date/Time of Note DATE: 05/11/18 TIME: 14:21 Exam/Review of Systems Exam Vitals Vital Signs Date Temp Pulse Resp B/P (MAP) Pulse Ox O2 O2 Flow FiO2 Time Delivery Rate 05/11/18 98.9 85 16 123/82 96 Room Air 14:10 (96) Intake and Output 05/10/18 05/10/18 05/11/18 1515:00 23:00 07:00 IntakeIntake Total 1210 ml 650 ml 240 ml BalanceBalance 1210 ml 650 ml 240 ml Results Result Diagram: 05/11/18 0435 05/11/18 0435 Results 24hrs Laboratory Tests Test 05/10/18 17:19 05/10/18 21:55 05/11/18 04:35 05/11/18 07:41 Bedside Glucose 225 H 131 147 White Blood Count 5.9 Red Blood Count 4.81 Hemoglobin 15.0 Hematocrit 43.9 Mean Corpuscular Volume 91.3 Mean Corpuscular 31.2 Hemoglobin Mean Corpuscular 34.2 Hemoglobin Concent Red Cell Distribution 11.5 Width Platelet Count 278 Mean Platelet Volume 9.3 Immature Granulocytes % 0.200 Neutrophils % 44.1 Lymphocytes % 37.5 Monocytes % 11.4 H Eosinophils % 5.6 Basophils % 1.2 Nucleated Red Blood 0.0 Cells % Immature Granulocytes # 0.010 Neutrophils # 2.6 Lymphocytes # 2.2 Monocytes # 0.7 Eosinophils # 0.3 Basophils # 0.1 Nucleated Red Blood 0.0 Cells # Sodium Level 141 Potassium Level 4.2 Chloride Level 104 Carbon Dioxide Level 29 Anion Gap 8 Blood Urea Nitrogen 14 Creatinine 0.87 Est Glomerular Filtrat > 60 Rate mL/min Glucose Level 163 Calcium Level 9.4 Test 05/11/18 12:12 Bedside Glucose 218 Medications Medication Current Medications IV Flush (NS 3 ml) 3 ml PER PROTOCOL IV ; Start 05/07/18 at 15:00 Ondansetron HCl (Zofran Inj) 4 mg Q6H PRN IV NAUSEA/VOMITING; Start 05/07/18 at 15:00 Acetaminophen (Tylenol Tab) 650 mg Q6H PRN PO .PAIN 1-3 OR TEMP; Start 05/07/18 at 15:00 Heparin Sodium (Porcine) (Heparin (5000 Units/1ml)) 5,000 unit Q8 SC Last administered on 05/11/18at 06:31; Admin Dose 5,000 UNIT; Start 05/07/18 at 22:00 Diagnostic Test (Pha) (Accu-Chek) 1 ea 02 XX ; Start 05/08/18 at 02:00 Insulin Aspart (Novolog Insulin Pen) NOVOLOG *MODERATE* ALGORITHM WITH MEALS BEDTIME SC Last administered on 05/11/18at 12:14; Admin Dose 4 UNIT; Start 05/07/18 at 18:00 Insulin Glargine (Lantus) 10 units DAILY@2000 SC Last administered on 05/10/18at 21:58; Admin Dose 10 UNITS; Start 05/07/18 at 20:00; Status Hold Miscellaneous Information 1 ea NOTE XX ; Start 05/07/18 at 16:00 Glucose (Glutose) 15 gm Q15M PRN PO DECREASED GLUCOSE; Start 05/07/18 at 16:00 Glucose (Glutose) 22.5 gm Q15M PRN PO DECREASED GLUCOSE; Start 05/07/18 at 16:00 Dextrose (D50w Syringe) 25 ml Q15M PRN IV DECREASED GLUCOSE; Start 05/07/18 at 16:00 Dextrose (D50w Syringe) 50 ml Q15M PRN IV DECREASED GLUCOSE; Start 05/07/18 at 16:00 Glucagon (Glucagen) 1 mg Q15M PRN IM DECREASED GLUCOSE; Start 05/07/18 at 16:00 Glucose (Glutose) 15 gm Q15M PRN BUCCAL DECREASED GLUCOSE; Start 05/07/18 at 1 6:00 Guaifenesin (Robitussin Liquid Cup) 200 mg Q4H PRN PO koff koff Last administered on 05/07/18 18:54; Admin Dose 200 MG; Start 05/07/18 at 17:00 Sodium Hypochlorite (Dakins Diluted ()) 1 ml DAILY TP Last administered on 05/11/18 08:04; Admin Dose 1 APPLIC; Start 05/08/18 at 09:00 Collagenase (Santyl) 1 applic DAILY TOP Last administered on 05/11/18 08:04; Admin Dose 1 APPLIC; Start 05/08/18 at 09:00 Fluconazole (Diflucan) 200 mg DAILY PO Last administered on 05/11/18 08:04; Admin Dose 200 MG; Start 05/08/18 at 10:30 Insulin Aspart (Novolog Insulin Pen) 5 unit WITH MEALS SC Last administered on 05/11/18 12:15; Admin Dose 5 UNIT; Start 05/09/18 at 18:00; Status Hold Ceftriaxone Sodium 50 ml @ 100 mls/hr Q24H IVPB Last administered on 05/11/18 12:09; Admin Dose 100 MLS/HR; Start 05/10/18 at 12:00 Metformin HCl (Glucophage) 850 mg BID WITH MEALS PO ; Start 05/11/18 at 18:00 JENNIFER GILL NP May 11, 2018 14:25
[2018-05-11] MEDS: metFORMIN 850 MG TAB PO SCH (17:50)
[2018-05-11 19:57] VITALS: BP 112/83; PULSE 90; RESP 18
[2018-05-12 02:06] VITALS: BP 131/74; PULSE 82; RESP 18
[2018-05-12] MEDS: ACCU-CHEK XX SCH (02:45)
[2018-05-12] MEDS: HEPARIN 5,000 UNIT/1 ML VIAL SC SCH ×3 (06:17→22:05)
[2018-05-12 07:54] VITALS: BP 130/94; PULSE 84; RESP 18
[2018-05-12] MEDS: FLUCONAZOLE 200 MG TAB PO SCH (08:25)
[2018-05-12] MEDS: COLLAGENASE 5 GM (UD JAR) TOP SCH (08:25)
[2018-05-12] MEDS: metFORMIN 850 MG TAB PO SCH ×2 (08:25→17:36)
[2018-05-12] MEDS: DAKINS 0.0125%(1/40) 473 ML SOLUTION TP SCH (08:25)
[2018-05-12] MEDS: INSULIN ASPART [NOVOLOG] 3 ML PEN SC SCH ×4 (08:30→21:07)
--- NOTE | 2018-05-12 12:33 | CONS ---
Assessment/Plan Assessment/Plan Hospital Course (Demo Recall) No events per report Microbiology: Urine culture on admission grew Nette albicans. Wound culture growing strep agalactiae staph species and MIKIE Antimicrobials: Fluconazole Rocephin Physical examination: Well-developed well-nourished middle-aged man who is alert in no distress. Head atraumatic normocephalic neck is supple chest rise symmetrical breath sounds clear heart S1-S2 abdomen soft bowel sounds present extremities with bilateral lower extremities dressing intact Assessment: 1. Bilateral lower extremities diabetic foot ulceration 2. Left foot osteomyelitis 3. Diabetic neuropathy Plan: Dc arrangements on IV Rocephin or po Zyvox to complete 6 weeks Consultation Date/Type/Reason Admit Date/Time May 07, 2018 at 13:47 Initial Consult Date Type of Consult id Date/Time of Note DATE: 05/12/18 TIME: 12:33 Exam/Review of Systems Exam Vitals Vital Signs Date Temp Pulse Resp B/P (MAP) Pulse Ox O2 O2 Flow FiO2 Time Delivery Rate 05/12/18 97.5 84 18 130/94 98 07:54 (106) 05/11/18 Room Air 14:10 Intake and Output 05/11/18 05/11/18 05/12/18 1515:00 23:00 07:00 IntakeIntake Total 410 ml 600 ml 300 ml BalanceBalance 410 ml 600 ml 300 ml Results Result Diagram: 05/12/18 0434 05/12/18 0434 Results 24hrs Laboratory Tests Test 05/11/18 15:15 05/11/18 17:46 05/11/18 21:12 05/12/18 02:35 Bedside Glucose 87 136 261 H 154 Test 05/12/18 04:34 05/12/18 08:03 White Blood Count 6.4 Red Blood Count 4.72 Hemoglobin 14.2 Hematocrit 43.2 Mean Corpuscular Volume 91.5 Mean Corpuscular 30.1 Hemoglobin Mean Corpuscular 32.9 Hemoglobin Concent Red Cell Distribution 11.4 L Width Platelet Count 283 Mean Platelet Volume 9.1 Immature Granulocytes % 0.500 H Neutrophils % 40.2 Lymphocytes % 41.7 Monocytes % 11.8 H Eosinophils % 4.7 Basophils % 1.1 Nucleated Red Blood 0.0 Cells % Immature Granulocytes # 0.030 Neutrophils # 2.6 Lymphocytes # 2.7 Monocytes # 0.8 Eosinophils # 0.3 Basophils # 0.1 Nucleated Red Blood 0.0 Cells # Sodium Level 139 Potassium Level 4.1 Chloride Level 101 Carbon Dioxide Level 29 Anion Gap 9 Blood Urea Nitrogen 18 Creatinine 0.84 Est Glomerular Filtrat > 60 Rate mL/min Glucose Level 176 Calcium Level 9.1 Bedside Glucose 173 Medications Medication Current Medications IV Flush (NS 3 ml) 3 ml PER PROTOCOL IV ; Start 05/07/18 at 15:00 Ondansetron HCl (Zofran Inj) 4 mg Q6H PRN IV NAUSEA/VOMITING; Start 05/07/18 at 15:00 Acetaminophen (Tylenol Tab) 650 mg Q6H PRN PO .PAIN 1-3 OR TEMP; Start 05/07/18 at 15:00 Heparin Sodium (Porcine) (Heparin (5000 Units/1ml)) 5,000 unit Q8 SC Last administered on 05/12/18at 06:17; Admin Dose 5,000 UNIT; Start 05/07/18 at 22:00 Diagnostic Test (Pha) (Accu-Chek) 1 ea 02 XX Last administered on 05/12/18at 02:45; Admin Dose 1 EA; Start 05/08/18 at 02:00 Insulin Aspart (Novolog Insulin Pen) NOVOLOG *MODERATE* ALGORITHM WITH MEALS BEDTIME SC Last administered on 05/12/18at 08:30; Admin Dose 2 UNIT; Start 05/07/18 at 18:00 Insulin Glargine (Lantus) 10 units DAILY@2000 SC Last administered on 05/10/18at 21:58; Admin Dose 10 UNITS; Start 05/07/18 at 20:00; Status Hold Miscellaneous Information 1 ea NOTE XX ; Start 05/07/18 at 16:00 Glucose (Glutose) 15 gm Q15M PRN PO DECREASED GLUCOSE; Start 05/07/18 at 16:00 Glucose (Glutose) 22.5 gm Q15M PRN PO DECREASED GLUCOSE; Start 05/07/18 at 16:00 Dextrose (D50w Syringe) 25 ml Q15M PRN IV DECREASED GLUCOSE; Start 05/07/18 at 16:00 Dextrose (D50w Syringe) 50 ml Q15M PRN IV DECREASED GLUCOSE; Start 05/07/18 at 16:00 Glucagon (Glucagen) 1 mg Q15M PRN IM DECREASED GLUCOSE; Start 05/07/18 at 16:00 Glucose (Glutose) 15 gm Q15M PRN BUCCAL DECREASED GLUCOSE; Start 05/07/18 at 16:00 Guaifenesin (Robitussin Liquid Cup) 200 mg Q4H PRN PO koff koff Last administered on 05/07/18 18:54; Admin Dose 200 MG; Start 05/07/18 at 17:00 Sodium Hypochlorite (Dakins Diluted (40)) 1 ml DAILY TP Last administered on 05/12/18 08:25; Admin Dose 1 APPLIC; Start 05/08/18 at 09:00 Collagenase (Santyl) 1 applic DAILY TOP Last administered on 05/12/18 08:25; Admin Dose 1 APPLIC; Start 05/08/18 at 09:00 Fluconazole (Diflucan) 200 mg DAILY PO Last administered on 05/12/18 08:25; Admin Dose 200 MG; Start 05/08/18 at 10:30 Insulin Aspart (Novolog Insulin Pen) 5 unit WITH MEALS SC Last administered on 05/11/18 12:15; Admin Dose 5 UNIT; Start 05/09/18 at 18:00; Status Hold Ceftriaxone Sodium 50 ml @ 100 mls/hr Q24H IVPB Last administered on 05/11/18 12:09; Admin Dose 100 MLS/HR; Start 05/10/18 at 12:00 Metformin HCl (Glucophage) 850 mg BID WITH MEALS PO Last administered on 05/12/18 08:25; Admin Dose 850 MG; Start 05/11/18 at 18:00 JENNIFER GILL NP May 12, 2018 12:33
[2018-05-12] MEDS: CEFTRIAXONE 1 GM/50 ML (PMX) 50 ML IVPB SCH (12:52)
--- NOTE | 2018-05-12 14:03 | PN ---
Date/Time of Note Date/Time of Note DATE: 05/12/18 TIME: 13:58 Assessment/Plan VTE Prophylaxis Risk score (from Nsg)>0 risk: 1 SCD applied (from Nsg): Yes Pharmacological prophylaxis: NA/contraindicated Pharm contraindication: low risk/ambulating Lines/Catheters IV Catheter Type (from Nrsg): Peripheral IV Urinary Cath still in place: No Assessment/Plan Assessment/Plan 47 yo man newly diagnosed diabetes presents with diabetic foot ulcers #Foot ulcers - MRI positive for L foot osteomyelitis - roberto Poole while in house. - Dr Phoenix following, debridement on admission. - Plan for 4-6 weeks of PO linezolid on discharge. - Dr. Tmo following #Asymptomatic bacteruria and candiduria - antifungals ordered by ID. #Diabetes - HgbA1C 12.8 - Previously on glargine and aspart. - Now switched to metformin PO - Seen by Krista, diabetes education DVT: heparin GI: None Dispo: Medically clear for discharge home with PO linezolid and wound care instruction and supplies. But currently has restricted Medi-Dwain. Pending approval for full scope Medi-Dwain. Result Diagram: 05/12/18 0434 05/12/18 0434 Subjective 24 Hr Interval Summary Free Text/Dictation No acute overnight events. Patient feeling fine, no complaints. Exam/Review of Systems Exam Vitals Vital Signs Date Temp Pulse Resp B/P (MAP) Pulse Ox O2 O2 Flow FiO2 Time Delivery Rate 05/12/18 97.5 84 18 130/94 98 07:54 (106) 05/11/18 Room Air 14:10 Intake and Output 05/11/18 05/11/18 05/12/18 1515:00 23:00 07:00 IntakeIntake Total 410 ml 600 ml 300 ml BalanceBalance 410 ml 600 ml 300 ml Exam Gen: Well developed man in no acute distress Eyes: PERRL, no icterus HEENT: Moist mucous membranes, clear oropharynx Neck: Soft, no lymphadenopathy, supple Card: Regular rate and rhythm, no murmurs Pulm: Clear to auscultation bilaterally Abd: Soft, nontender, nondistended. Ext: L leg no edema, R leg no significant edema. Skin: R foot bandaged. Dry, clean based ulcer on dorsal L foot. Results Results 24hrs Laboratory Tests Test 05/11/18 15:15 05/11/18 17:46 05/11/18 21:12 05/12/18 02:35 Bedside Glucose 87 136 261 H 154 Test 05/12/18 04:34 05/12/18 08:03 05/12/18 13:13 White Blood Count 6.4 Red Blood Count 4.72 Hemoglobin 14.2 Hematocrit 43.2 Mean Corpuscular Volume 91.5 Mean Corpuscular 30.1 Hemoglobin Mean Corpuscular 32.9 Hemoglobin Concent Red Cell Distribution 11.4 L Width Platelet Count 283 Mean Platelet Volume 9.1 Immature Granulocytes % 0.500 H Neutrophils % 40.2 Lymphocytes % 41.7 Monocytes % 11.8 H Eosinophils % 4.7 Basophils % 1.1 Nucleated Red Blood 0.0 Cells % Immature Granulocytes # 0.030 Neutrophils # 2.6 Lymphocytes # 2.7 Monocytes # 0.8 Eosinophils # 0.3 Basophils # 0.1 Nucleated Red Blood 0.0 Cells # Sodium Level 139 Potassium Level 4.1 Chloride Level 101 Carbon Dioxide Level 29 Anion Gap 9 Blood Urea Nitrogen 18 Creatinine 0.84 Est Glomerular Filtrat > 60 Rate mL/min Glucose Level 176 Calcium Level 9.1 Bedside Glucose 173 210 Medications Medication Current Medications IV Flush (NS 3 ml) 3 ml PER PROTOCOL IV ; Start 05/07/18 at 15:00 Ondansetron HCl (Zofran Inj) 4 mg Q6H PRN IV NAUSEA/VOMITING; Start 05/07/18 at 15:00 Acetaminophen (Tylenol Tab) 650 mg Q6H PRN PO .PAIN 1-3 OR TEMP; Start 05/07/18 at 15:00 Heparin Sodium (Porcine) (Heparin (5000 Units/1ml)) 5,000 unit Q8 SC Last administered on 05/12/18at 06:17; Admin Dose 5,000 UNIT; Start 05/07/18 at 22:00 Diagnostic Test (Pha) (Accu-Chek) 1 ea 02 XX Last administered on 05/12/18at 02:45; Admin Dose 1 EA; Start 05/08/18 at 02:00 Insulin Aspart (Novolog Insulin Pen) NOVOLOG *MODERATE* ALGORITHM WITH MEALS BEDTIME SC Last administered on 05/12/18at 13:16; Admin Dose 4 UNIT; Start 05/07/18 at 18:00 Insulin Glargine (Lantus) 10 units DAILY@2000 SC Last administered on 05/10/18at 21:58; Admin Dose 10 UNITS; Start 05/07/18 at 20:00; Status Hold Miscellaneous Information 1 ea NOTE XX ; Start 05/07/18 at 16:00 Glucose (Glutose) 15 gm Q15M PRN PO DECREASED GLUCOSE; Start 05/07/18 at 16:00 Glucose (Glutose) 22.5 gm Q15M PRN PO DECREASED GLUCOSE; Start 05/07/18 at 16:00 Dextrose (D50w Syringe) 25 ml Q15M PRN IV DECREASED GLUCOSE; Start 05/07/18 at 16:00 Dextrose (D50w Syringe) 50 ml Q15M PRN IV DECREASED GLUCOSE; Start 05/07/18 at 16:00 Glucagon (Glucagen) 1 mg Q15M PRN IM DECREASED GLUCOSE; Start 05/07/18 at 16:00 Glucose (Glutose) 15 gm Q15M PRN BUCCAL DECREASED GLUCOSE; Start 05/07/18 at 16:00 Guaifenesin (Robitussin Liquid Cup) 200 mg Q4H PRN PO koff koff Last administered on 05/07/18at 18:54; Admin Dose 200 MG; Start 05/07/18 at 17:00 Sodium Hypochlorite (Dakins Diluted (40)) 1 ml DAILY TP Last administered on 05/12/18 08:25; Admin Dose 1 APPLIC; Start 05/08/18 at 09:00 Collagenase (Santyl) 1 applic DAILY TOP Last administered on 05/12/18 08:25; Admin Dose 1 APPLIC; Start 05/08/18 at 09:00 Fluconazole (Diflucan) 200 mg DAILY PO Last administered on 05/12/18 08:25; Admin Dose 200 MG; Start 05/08/18 at 10:30 Insulin Aspart (Novolog Insulin Pen) 5 unit WITH MEALS SC Last administered on 05/11/18 12:15; Admin Dose 5 UNIT; Start 05/09/18 at 18:00; Status Hold Ceftriaxone Sodium 50 ml @ 100 mls/hr Q24H IVPB Last administered on 05/12/18 12:52; Admin Dose 100 MLS/HR; Start 05/10/18 at 12:00 Metformin HCl (Glucophage) 850 mg BID WITH MEALS PO Last administered on 4/6/19at 08:25; Admin Dose 850 MG; Start 05/11/18 at 18:00 MADI LUNDBERG MD May 12, 2018 14:03
[2018-05-12 15:10] VITALS: BP 119/79; PULSE 81; RESP 18
[2018-05-12 20:04] VITALS: BP 137/88; PULSE 84; RESP 18
[2018-05-13 01:52] VITALS: BP 125/83; PULSE 81; RESP 18
[2018-05-13] MEDS: ACCU-CHEK XX SCH (02:00)
[2018-05-13] MEDS: HEPARIN 5,000 UNIT/1 ML VIAL SC SCH ×3 (06:14→21:40)
[2018-05-13 07:47] VITALS: BP 108/72; PULSE 85; RESP 17
[2018-05-13] MEDS: FLUCONAZOLE 200 MG TAB PO SCH (08:17)
[2018-05-13] MEDS: metFORMIN 850 MG TAB PO SCH ×2 (08:17→17:47)
[2018-05-13] MEDS: INSULIN ASPART [NOVOLOG] 3 ML PEN SC SCH ×4 (08:19→21:39)
[2018-05-13] MEDS: COLLAGENASE 5 GM (UD JAR) TOP SCH (08:21)
[2018-05-13] MEDS: DAKINS 0.0125%(1/40) 473 ML SOLUTION TP SCH (12:51)
[2018-05-13] MEDS: CEFTRIAXONE 1 GM/50 ML (PMX) 50 ML IVPB SCH (12:51)
--- NOTE | 2018-05-13 13:00 | CONS ---
Assessment/Plan Assessment/Plan Hospital Course (Demo Recall) Alert, looks comfortable, no fevers Microbiology: Urine culture on admission grew Nette albicans. Wound culture growing strep agalactiae staph species and MIKIE Antimicrobials: Fluconazole Rocephin Physical examination: Well-developed well-nourished middle-aged man who is alert in no distress. Head atraumatic normocephalic neck is supple chest rise symmetrical breath sounds clear heart S1-S2 abdomen soft bowel sounds present extremities with bilateral lower extremities dressing intact Assessment: 1. Bilateral lower extremities diabetic foot ulceration 2. Left foot osteomyelitis 3. Diabetic neuropathy Plan: Stable, pending dc on IV Rocephin or po Zyvox to complete 6 weeks dc Diflucan Consultation Date/Type/Reason Admit Date/Time May 07, 2018 at 13:47 Initial Consult Date Type of Consult id Date/Time of Note DATE: 05/13/18 TIME: 12:58 Exam/Review of Systems Exam Vitals Vital Signs Date Temp Pulse Resp B/P (MAP) Pulse Ox O2 O2 Flow FiO2 Time Delivery Rate 05/13/18 98.5 85 17 108/72 95 Room Air 07:47 (84) Intake and Output 05/12/18 05/12/18 05/13/18 1515:00 23:00 07:00 IntakeIntake Total 1010 ml 480 ml 800 ml BalanceBalance 1010 ml 480 ml 800 ml Results Result Diagram: 05/13/18 0530 05/13/18 0530 Results 24hrs Laboratory Tests Test 05/12/18 13:13 05/12/18 17:36 05/12/18 21:03 05/13/18 02:12 Bedside Glucose 210 174 231 H 176 Test 05/13/18 05:30 05/13/18 08:15 White Blood Count 5.8 Red Blood Count 4.68 L Hemoglobin 14.4 Hematocrit 43.1 Mean Corpuscular Volume 92.1 Mean Corpuscular 30.8 Hemoglobin Mean Corpuscular 33.4 Hemoglobin Concent Red Cell Distribution 11.5 Width Platelet Count 275 Mean Platelet Volume 9.2 Immature Granulocytes % 0.300 Neutrophils % 45.4 Lymphocytes % 36.7 Monocytes % 10.1 Eosinophils % 6.3 Basophils % 1.2 Nucleated Red Blood 0.0 Cells % Immature Granulocytes # 0.020 Neutrophils # 2.6 Lymphocytes # 2.1 Monocytes # 0.6 Eosinophils # 0.4 Basophils # 0.1 Nucleated Red Blood 0.0 Cells # Sodium Level 139 Potassium Level 4.1 Chloride Level 104 Carbon Dioxide Level 28 Anion Gap 7 Blood Urea Nitrogen 19 Creatinine 0.89 Est Glomerular Filtrat > 60 Rate mL/min Glucose Level 204 Calcium Level 9.3 Bedside Glucose 175 Medications Medication Current Medications IV Flush (NS 3 ml) 3 ml PER PROTOCOL IV ; Start 05/07/18 at 15:00 Ondansetron HCl (Zofran Inj) 4 mg Q6H PRN IV NAUSEA/VOMITING; Start 05/07/18 at 15:00 Acetaminophen (Tylenol Tab) 650 mg Q6H PRN PO .PAIN 1-3 OR TEMP; Start 05/07/18 at 15:00 Heparin Sodium (Porcine) (Heparin (5000 Units/1ml)) 5,000 unit Q8 SC Last administered on 05/13/18at 06:14; Admin Dose 5,000 UNIT; Start 05/07/18 at 22:00 Diagnostic Test (Pha) (Accu-Chek) 1 ea 02 XX Last administered on 05/12/18at 02:45; Admin Dose 1 EA; Start 05/08/18 at 02:00 Insulin Aspart (Novolog Insulin Pen) NOVOLOG *MODERATE* ALGORITHM WITH MEALS BEDTIME SC Last administered on 05/13/18at 12:52; Admin Dose 2 UNIT; Start 05/07/18 at 18:00 Insulin Glargine (Lantus) 10 units DAILY@2000 SC Last administered on 05/10/18at 21:58; Admin Dose 10 UNITS; Start 05/07/18 at 20:00; Status Hold Miscellaneous Information 1 ea NOTE XX ; Start 05/07/18 at 16:00 Glucose (Glutose) 15 gm Q15M PRN PO DECREASED GLUCOSE; Start 05/07/18 at 16:00 Glucose (Glutose) 22.5 gm Q15M PRN PO DECREASED GLUCOSE; Start 05/07/18 at 16:00 Dextrose (D50w Syringe) 25 ml Q15M PRN IV DECREASED GLUCOSE; Start 05/07/18 at 16:00 Dextrose (D50w Syringe) 50 ml Q15M PRN IV DECREASED GLUCOSE; Start 05/07/18 at 16:00 Glucagon (Glucagen) 1 mg Q15M PRN IM DECREASED GLUCOSE; Start 05/07/18 at 16:00 Glucose (Glutose) 15 gm Q15M PRN BUCCAL DECREASED GLUCOSE; Start 05/07/18 at 16:00 Guaifenesin (Robitussin Liquid Cup) 200 mg Q4H PRN PO koff koff Last administered on 05/07/18 18:54; Admin Dose 200 MG; Start 05/07/18 at 17:00 Sodium Hypochlorite (Dakins Diluted (40)) 1 ml DAILY TP Last administered on 05/13/18 12:51; Admin Dose 1 APPLIC; Start 05/08/18 at 09:00 Collagenase (Santyl) 1 applic DAILY TOP Last administered on 05/13/18 08:21; Admin Dose 1 APPLIC; Start 05/08/18 at 09:00 Fluconazole (Diflucan) 200 mg DAILY PO Last administered on 05/13/18 08:17; Admin Dose 200 MG; Start 05/08/18 at 10:30 Insulin Aspart (Novolog Insulin Pen) 5 unit WITH MEALS SC Last administered on 05/11/18 12:15; Admin Dose 5 UNIT; Start 05/09/18 at 18:00; Status Hold Ceftriaxone Sodium 50 ml @ 100 mls/hr Q24H IVPB Last administered on 05/13/18 12:51; Admin Dose 100 MLS/HR; Start 05/10/18 at 12:00 Metformin HCl (Glucophage) 850 mg BID WITH MEALS PO Last administered on 05/13/18 08:17; Admin Dose 850 MG; Start 05/11/18 at 18:00 JENNIFER GILL NP May 13, 2018 13:00
--- NOTE | 2018-05-13 14:22 | PN ---
Date/Time of Note Date/Time of Note DATE: 05/13/18 TIME: 14:20 Assessment/Plan VTE Prophylaxis Risk score (from Nsg)>0 risk: 2 SCD applied (from Nsg): No SCD contraindicated: low risk/ambulating Pharmacological prophylaxis: heparin Lines/Catheters IV Catheter Type (from Nrsg): Saline Lock Urinary Cath still in place: No Assessment/Plan Assessment/Plan 47 yo man newly diagnosed diabetes presents with diabetic foot ulcers #Foot ulcers - MRI positive for L foot osteomyelitis - roberto Poole while in house. - Dr Phoenix following, debridement on admission. - Plan for 4-6 weeks of PO linezolid on discharge. - Dr. Tom following #Diabetes - HgbA1C 12.8 - Previously on glargine and aspart. - Now switched to metformin PO - Seen by Krista, diabetes education #Asymptomatic bacteruria and candiduria - antifungals ordered by ID, now stopped. DVT: heparin GI: None Dispo: Medically clear for discharge home with PO linezolid and wound care instruction and supplies. But currently has restricted Medi-Dwain. Pending approval for full scope Medi-Dwain. Result Diagram: 05/13/18 0530 05/13/18 0530 Subjective 24 Hr Interval Summary Free Text/Dictation No acute overnight events. Patient feeling well. His and niece are at bedside. Exam/Review of Systems Exam Vitals Vital Signs Date Temp Pulse Resp B/P (MAP) Pulse Ox O2 O2 Flow FiO2 Time Delivery Rate 05/13/18 98.5 85 17 108/72 95 Room Air 07:47 (84) Intake and Output 05/12/18 05/12/18 05/13/18 1515:00 23:00 07:00 IntakeIntake Total 1010 ml 480 ml 800 ml BalanceBalance 1010 ml 480 ml 800 ml Exam Gen: Well developed man in no acute distress Eyes: PERRL, no icterus HEENT: Moist mucous membranes, clear oropharynx Neck: Soft, no lymphadenopathy, supple Card: Regular rate and rhythm, no murmurs Pulm: Clear to auscultation bilaterally Abd: Soft, nontender, nondistended. Ext: L leg no edema, R leg no significant edema. Skin: R foot bandaged. Dry, clean based ulcer on dorsal L foot. Results Results 24hrs Laboratory Tests Test 05/12/18 17:36 05/12/18 21:03 05/13/18 02:12 05/13/18 05:30 Bedside Glucose 174 231 H 176 White Blood Count 5.8 Red Blood Count 4.68 L Hemoglobin 14.4 Hematocrit 43.1 Mean Corpuscular Volume 92.1 Mean Corpuscular 30.8 Hemoglobin Mean Corpuscular 33.4 Hemoglobin Concent Red Cell Distribution 11.5 Width Platelet Count 275 Mean Platelet Volume 9.2 Immature Granulocytes % 0.300 Neutrophils % 45.4 Lymphocytes % 36.7 Monocytes % 10.1 Eosinophils % 6.3 Basophils % 1.2 Nucleated Red Blood 0.0 Cells % Immature Granulocytes # 0.020 Neutrophils # 2.6 Lymphocytes # 2.1 Monocytes # 0.6 Eosinophils # 0.4 Basophils # 0.1 Nucleated Red Blood 0.0 Cells # Sodium Level 139 Potassium Level 4.1 Chloride Level 104 Carbon Dioxide Level 28 Anion Gap 7 Blood Urea Nitrogen 19 Creatinine 0.89 Est Glomerular Filtrat > 60 Rate mL/min Glucose Level 204 Calcium Level 9.3 Test 05/13/18 08:15 05/13/18 12:48 Bedside Glucose 175 176 Medications Medication Current Medications IV Flush (NS 3 ml) 3 ml PER PROTOCOL IV ; Start 05/07/18 at 15:00 Ondansetron HCl (Zofran Inj) 4 mg Q6H PRN IV NAUSEA/VOMITING; Start 05/07/18 at 15:00 Acetaminophen (Tylenol Tab) 650 mg Q6H PRN PO .PAIN 1-3 OR TEMP; Start 05/07/18 at 15:00 Heparin Sodium (Porcine) (Heparin (5000 Units/1ml)) 5,000 unit Q8 SC Last administered on 05/13/18at 06:14; Admin Dose 5,000 UNIT; Start 05/07/18 at 22:00 Diagnostic Test (Pha) (Accu-Chek) 1 ea 02 XX Last administered on 05/12/18at 02:45; Admin Dose 1 EA; Start 05/08/18 at 02:00 Insulin Aspart (Novolog Insulin Pen) NOVOLOG *MODERATE* ALGORITHM WITH MEALS BEDTIME SC Last administered on 05/13/18at 12:52; Admin Dose 2 UNIT; Start 05/07/18 at 18:00 Insulin Glargine (Lantus) 10 units DAILY@2000 SC Last administered on 05/10/18 21:58; Admin Dose 10 UNITS; Start 05/07/18 at 20:00; Status Hold Miscellaneous Information 1 ea NOTE XX ; Start 05/07/18 at 16:00 Glucose (Glutose) 15 gm Q15M PRN PO DECREASED GLUCOSE; Start 05/07/18 at 16:00 Glucose (Glutose) 22.5 gm Q15M PRN PO DECREASED GLUCOSE; Start 05/07/18 at 16:00 Dextrose (D50w Syringe) 25 ml Q15M PRN IV DECREASED GLUCOSE; Start 05/07/18 at 16:00 Dextrose (D50w Syringe) 50 ml Q15M PRN IV DECREASED GLUCOSE; Start 05/07/18 at 16:00 Glucagon (Glucagen) 1 mg Q15M PRN IM DECREASED GLUCOSE; Start 05/07/18 at 16:00 Glucose (Glutose) 15 gm Q15M PRN BUCCAL DECREASED GLUCOSE; Start 05/07/18 at 16:00 Guaifenesin (Robitussin Liquid Cup) 200 mg Q4H PRN PO sabrina bennett Last administered on 05/07/18 18:54; Admin Dose 200 MG; Start 05/07/18 at 17:00 Sodium Hypochlorite (Dakins Diluted ()) 1 ml DAILY TP Last administered on 05/13/18 12:51; Admin Dose 1 APPLIC; Start 05/08/18 at 09:00 Collagenase (Santyl) 1 applic DAILY TOP Last administered on 05/13/18 08:21; Admin Dose 1 APPLIC; Start 05/08/18 at 09:00 Insulin Aspart (Novolog Insulin Pen) 5 unit WITH MEALS SC Last administered on 05/11/18 12:15; Admin Dose 5 UNIT; Start 05/09/18 at 18:00; Status Hold Ceftriaxone Sodium 50 ml @ 100 mls/hr Q24H IVPB Last administered on 05/13/18 12:51; Admin Dose 100 MLS/HR; Start 05/10/18 at 12:00 Metformin HCl (Glucophage) 850 mg BID WITH MEALS PO Last administered on 05/13/18 08:17; Admin Dose 850 MG; Start 05/11/18 at 18:00 MADI LUNDBERG MD May 13, 2018 14:22
[2018-05-13 14:37] VITALS: BP 118/78; PULSE 85; RESP 17
[2018-05-13 19:09] VITALS: BP 127/87; PULSE 87; RESP 18
[2018-05-14 01:13] VITALS: BP 127/83; PULSE 80; RESP 18
[2018-05-14] MEDS: ACCU-CHEK XX SCH (02:10)
[2018-05-14] MEDS: HEPARIN 5,000 UNIT/1 ML VIAL SC SCH ×3 (06:36→21:23)
[2018-05-14 07:28] VITALS: BP 115/74; PULSE 95; RESP 16
[2018-05-14] MEDS: metFORMIN 850 MG TAB PO SCH ×2 (08:14→17:45)
[2018-05-14] MEDS: INSULIN ASPART [NOVOLOG] 3 ML PEN SC SCH ×4 (08:16→21:17)
[2018-05-14] MEDS: COLLAGENASE 5 GM (UD JAR) TOP SCH (08:16)
[2018-05-14] MEDS: DAKINS 0.0125%(1/40) 473 ML SOLUTION TP SCH (08:17)
[2018-05-14] MEDS: CEFTRIAXONE 1 GM/50 ML (PMX) 50 ML IVPB SCH (12:13)
--- NOTE | 2018-05-14 13:10 | CONS ---
Assessment/Plan Assessment/Plan Hospital Course (Demo Recall) Alert, feels good Microbiology: Urine culture on admission grew Nette albicans. Wound culture growing strep agalactiae staph species and MIKIE Antimicrobials: Rocephin Physical examination: Well-developed well-nourished middle-aged man who is alert in no distress. Head atraumatic normocephalic neck is supple chest rise symmetrical breath sounds clear heart S1-S2 abdomen soft bowel sounds present extremities with bilateral lower extremities dressing intact Assessment: 1. Bilateral lower extremities diabetic foot ulceration 2. Left foot osteomyelitis 3. Diabetic neuropathy Plan: Stable, pending dc arrangements Consultation Date/Type/Reason Admit Date/Time May 07, 2018 at 13:47 Initial Consult Date Type of Consult id Date/Time of Note DATE: 05/14/18 TIME: 13:09 Exam/Review of Systems Exam Vitals Vital Signs Date Temp Pulse Resp B/P (MAP) Pulse Ox O2 O2 Flow FiO2 Time Delivery Rate 05/14/18 98.2 95 16 115/74 98 07:28 (88) 05/13/18 Room Air 14:37 Intake and Output 05/13/18 05/13/18 05/14/18 1515:00 23:00 07:00 IntakeIntake Total 770 ml 480 ml OutputOutput Total 500 ml BalanceBalance 270 ml 480 ml Results Result Diagram: 05/13/18 0530 05/13/18 0530 Results 24hrs Laboratory Tests Test 05/13/18 17:45 05/13/18 21:37 05/14/18 02:10 05/14/18 07:39 Bedside Glucose 216 282 H 174 176 Test 05/14/18 12:05 Bedside Glucose 206 Medications Medication Current Medications IV Flush (NS 3 ml) 3 ml PER PROTOCOL IV ; Start 05/07/18 at 15:00 Ondansetron HCl (Zofran Inj) 4 mg Q6H PRN IV NAUSEA/VOMITING; Start 05/07/18 at 15:00 Acetaminophen (Tylenol Tab) 650 mg Q6H PRN PO .PAIN 1-3 OR TEMP; Start 05/07/18 at 15:00 Heparin Sodium (Porcine) (Heparin (5000 Units/1ml)) 5,000 unit Q8 SC Last administered on 05/14/18at 06:36; Admin Dose 5,000 UNIT; Start 05/07/18 at 22:00 Diagnostic Test (Pha) (Accu-Chek) 1 ea 02 XX Last administered on 05/14/18at 02:10; Admin Dose 1 EA; Start 05/08/18 at 02:00 Insulin Aspart (Novolog Insulin Pen) NOVOLOG *MODERATE* ALGORITHM WITH MEALS BEDTIME SC Last administered on 05/14/18 12:14; Admin Dose 4 UNIT; Start 05/07/18 at 18:00 Insulin Glargine (Lantus) 10 units DAILY@2000 SC Last administered on 05/10/18 21:58; Admin Dose 10 UNITS; Start 05/07/18 at 20:00; Status Hold Miscellaneous Information 1 ea NOTE XX ; Start 05/07/18 at 16:00 Glucose (Glutose) 15 gm Q15M PRN PO DECREASED GLUCOSE; Start 05/07/18 at 16:00 Glucose (Glutose) 22.5 gm Q15M PRN PO DECREASED GLUCOSE; Start 05/07/18 at 16:00 Dextrose (D50w Syringe) 25 ml Q15M PRN IV DECREASED GLUCOSE; Start 05/07/18 at 16:00 Dextrose (D50w Syringe) 50 ml Q15M PRN IV DECREASED GLUCOSE; Start 05/07/18 at 16:00 Glucagon (Glucagen) 1 mg Q15M PRN IM DECREASED GLUCOSE; Start 05/07/18 at 16:00 Glucose (Glutose) 15 gm Q15M PRN BUCCAL DECREASED GLUCOSE; Start 05/07/18 at 16:00 Guaifenesin (Robitussin Liquid Cup) 200 mg Q4H PRN PO sabrina bennett Last admin istered on 05/07/18at 18:54; Admin Dose 200 MG; Start 05/07/18 at 17:00 Sodium Hypochlorite (Dakins Diluted (/40)) 1 ml DAILY TP Last administered on 05/14/18 08:17; Admin Dose 1 APPLIC; Start 05/08/18 at 09:00 Collagenase (Santyl) 1 applic DAILY TOP Last administered on 05/14/18 08:16; Admin Dose 1 APPLIC; Start 05/08/18 at 09:00 Insulin Aspart (Novolog Insulin Pen) 5 unit WITH MEALS SC Last administered on 05/11/18 12:15; Admin Dose 5 UNIT; Start 05/09/18 at 18:00; Status Hold Ceftriaxone Sodium 50 ml @ 100 mls/hr Q24H IVPB Last administered on 05/14/18at 12:13; Admin Dose 100 MLS/HR; Start 05/10/18 at 12:00 Metformin HCl (Glucophage) 850 mg BID WITH MEALS PO Last administered on 05/14/18 08:14; Admin Dose 850 MG; Start 05/11/18 at 18:00 JENNIFER GILL NP May 14, 2018 13:10
--- NOTE | 2018-05-14 14:03 | DS ---
Date/Time of Note Date/Time of Note DATE: 05/14/18 TIME: 13:58 Discharge Summary Admission/Discharge Info Admit Date/Time May 07, 2018 at 13:47 Discharge Date/Time Discharge Diagnosis Uncontrolled diabetes mellitus A1c = 12.8, sugars stable here Osteomyelitis of the left 5th digit -positive polymicrobial growth from wound culture Diabetic neuropathy Patient Condition: Stable Procedures Left foot MRI: IMPRESSION: 1. Soft tissue swelling/ulcer in the fifth digit with osteomyelitis of the fifth middle and distal phalanges. Reactive osteitis in the fifth proximal phalanx with a possible small focus of marrow infiltrative signal in the head, and early osteomyelitis is not excluded. 2. Diffuse subcutaneous edema as detailed above, and diffuse edema in the visualized portions of the intrinsic musculature of the foot which may be neuropathic. Hx of Present Illness 47 yo man from [facility] who presents with feet ulcers. Was in his usual state of health until about 2 weeks ago when he noticed a worsening L foot ulcer on his pinky toe. Also had R leg edema at the end of the day; but when he wakes up in the morning it's back to normal. About a week ago got tetracycline capsules at a clinic; he has been taking one orally every day and rubbing on topically on the affected digit. Had a fever the day prior to admission, so presented to the ED. In the ED he was afebrile; vital signs stable. Labs notable for hyponatremia to 131, hyperglycemia to 453. No known history of diabetes. XR of L foot shows soft tissue swelling, possible bonnie-osteal reaction. Hospital Course Patient was admitted and started on antibiotics. Seen by podiatry infectious disease teams during this hospital stay. A1c found to be 12.8. Received insulin to help control his sugars. He was found with osteomyelitis of the left fifth digit of the foot. Patient was placed on antibiotics as mentioned before and his wound cultures showed polymicrobial growth. His white blood cell count was normal, no fevers. He was able to ambulate, tolerated p.o. diet. He received wound care as well. He will be discharged home today in improved condition. He will go home with antibiotics mentioned below along with other medications please see below. Home Meds Active Scripts Linezolid (Linezolid) 600 Mg Tablet, 600 MG PO BID, #42 TAB Prov:MADI LUNDBERG MD 05/10/18 Metformin* (Glucophage*) 500 Mg Tab, 500 MG PO WITH BREAKFAST DINNE, #90 TAB Prov:MADI LUNDBERG MD 05/10/18 Fluconazole* (Diflucan*) 200 Mg Tablet, 200 MG PO DAILY, #4 TAB Prov:MADI LUNDBERG MD 05/10/18 Follow-up Plan 1. Take all medications as prescribed. 2. Continue daily wound dressing changes as instructed. 3. Return to the [facility] clinic as scheduled. If your insurance will not allow you to return to the clinic here, go to [facility] ([address] [place], [place] [address]) 1. [place] todos los medicamentos segn lo prescrito. 2. Continuar con los cambios diarios del apsito de la herida segn las instrucciones. 3. Regrese a la clnica de [facility] segn lo programado. Si saravia seguro no le permite regresar a la clnica aqu, vaya a [facility] ([address], [place] [address]) Primary Care Provider Not On Staff Doctor Time spent on discharge: > 30 minutes Pending Labs Laboratory Tests Test 05/13/18 17:45 05/13/18 21:37 05/14/18 02:10 05/14/18 07:39 Bedside 216 282 174 176 Glucose mg/dL (70-220) mg/dL (70-220) mg/dL (70-220) mg/dL (70-220) Test 05/14/18 12:05 Bedside 206 Glucose mg/dL (70-220) JR HERNÁNDEZ May 14, 2018 14:03
[2018-05-14 14:17] VITALS: BP 123/85; PULSE 83; RESP 16
[2018-05-14] MEDS ORDERED: LIDOCAINE 1% (MPF) 5 ML VIAL SC ONE (15:30)
[2018-05-14 19:22] VITALS: BP 131/88; PULSE 85; RESP 18
[2018-05-15 01:36] VITALS: BP 107/76; PULSE 78; RESP 18
[2018-05-15] MEDS: ACCU-CHEK XX SCH (02:00)
[2018-05-15] MEDS: HEPARIN 5,000 UNIT/1 ML VIAL SC SCH ×2 (05:49→17:49)
[2018-05-15 07:50] VITALS: BP 116/74; PULSE 88; RESP 18
[2018-05-15] MEDS: INSULIN ASPART [NOVOLOG] 3 ML PEN SC SCH ×3 (08:29→17:49)
[2018-05-15] MEDS: COLLAGENASE 5 GM (UD JAR) TOP SCH (08:30)
[2018-05-15] MEDS: DAKINS 0.0125%(1/40) 473 ML SOLUTION TP SCH (08:30)
[2018-05-15] MEDS: metFORMIN 850 MG TAB PO SCH ×2 (08:35→17:44)
--- NOTE | 2018-05-15 11:28 | DS ---
Date/Time of Note Date/Time of Note DATE: 05/15/18 TIME: 11:28 Discharge Summary Admission/Discharge Info Admit Date/Time May 07, 2018 at 13:47 Discharge Date/Time Discharge Diagnosis Uncontrolled diabetes mellitus A1c = 12.8, sugars stable here Osteomyelitis of the left 5th digit -positive polymicrobial growth from wound culture Diabetic neuropathy Patient Condition: Stable Hx of Present Illness 47 yo man from [facility] who presents with feet ulcers. Was in his usual state of health until about 2 weeks ago when he noticed a worsening L foot ulcer on his pinky toe. Also had R leg edema at the end of the day; but when he wakes up in the morning it's back to normal. About a week ago got tetracycline capsules at a clinic; he has been taking one orally every day and rubbing on topically on the affected digit. Had a fever the day prior to admission, so presented to the ED. In the ED he was afebrile; vital signs stable. Labs notable for hyponatremia to 131, hyperglycemia to 453. No known history of diabetes. XR of L foot shows soft tissue swelling, possible bonnie-osteal reaction. Hospital Course Patient was admitted and started on antibiotics. Seen by podiatry infectious disease teams during this hospital stay. A1c found to be 12.8. Received insulin to help control his sugars. He was found with osteomyelitis of the left fifth digit of the foot. Patient was placed on antibiotics as mentioned before and his wound cultures showed polymicrobial growth. His white blood cell count was normal, no fevers. He was able to ambulate, tolerated p.o. diet. He received wound care as well. He will be discharged home today in improved condition. He will go home with antibiotics mentioned below (this will actually be IV Rocephin now for 6 weeks total instead of p.o. Zyvox because insurance will not cover the p.o. Zyvox) along with other medications, please see below for full list of discharge medications. Home Meds Active Scripts Linezolid (Linezolid) 600 Mg Tablet, 600 MG PO BID, #42 TAB Prov:MADI LUNDBERG MD 05/10/18 Metformin* (Glucophage*) 500 Mg Tab, 500 MG PO WITH BREAKFAST DINNE, #90 TAB Prov:MADI LUNDBERG MD 05/10/18 Fluconazole* (Diflucan*) 200 Mg Tablet, 200 MG PO DAILY, #4 TAB Prov:MADI LUNDBERG MD 05/10/18 Follow-up Plan 1. Take all medications as prescribed. 2. Continue daily wound dressing changes as instructed. 3. Return to the [facility] clinic as scheduled. If your insurance will not allow you to return to the clinic here, go to [facility] ([address] [place], [place] [address]) 1. [place] todos los medicamentos segn lo prescrito. 2. Continuar con los cambios diarios del apsito de la herida segn las instrucciones. 3. Regrese a la clnica de [facility] segn lo programado. Si saravia seguro no le permite regresar a la clnica aqu, vaya a [facility] ([address] [place] [address]) Primary Care Provider Not On Staff Doctor Time spent on discharge: > 30 minutes Pending Labs Laboratory Tests Test 05/14/18 12:05 05/14/18 17:34 05/14/18 21:09 05/15/18 02:57 Bedside 206 148 194 149 Glucose mg/dL (70-220) mg/dL (70-220) mg/dL (70-220) mg/dL (70-220) Test 05/15/18 08:27 Bedside 182 Glucose mg/dL (70-220) JR HERNÁNDEZ May 15, 2018 11:28
[2018-05-15] MEDS: CEFTRIAXONE 1 GM/50 ML (PMX) 50 ML IVPB SCH (12:50)
--- NOTE | 2018-05-15 13:42 | CONS ---
Assessment/Plan Assessment/Plan Hospital Course (Demo Recall) Alert, feels good Microbiology: Urine culture on admission grew Nette albicans. Wound culture growing strep agalactiae staph species and MIKIE Antimicrobials: Rocephin Physical examination: Well-developed well-nourished middle-aged man who is alert in no distress. Head atraumatic normocephalic neck is supple chest rise symmetrical breath sounds clear heart S1-S2 abdomen soft bowel sounds present extremities with bilateral lower extremities dressing intact Assessment: 1. Bilateral lower extremities diabetic foot ulceration 2. Left foot osteomyelitis 3. Diabetic neuropathy Plan: Stable, pending dc on Rocephin till June 21, s/p PICC Consultation Date/Type/Reason Admit Date/Time May 07, 2018 at 13:47 Initial Consult Date Type of Consult id Date/Time of Note DATE: 05/15/18 TIME: 13:41 Exam/Review of Systems Exam Vitals Vital Signs Date Temp Pulse Resp B/P (MAP) Pulse Ox O2 O2 Flow FiO2 Time Delivery Rate 05/15/18 98.5 88 18 116/74 98 Room Air 07:50 (88) Intake and Output 05/14/18 05/14/18 05/15/18 1515:00 23:00 07:00 IntakeIntake Total 960 ml 670 ml 800 ml BalanceBalance 960 ml 670 ml 800 ml Results Result Diagram: 05/13/18 0530 05/13/18 0530 Results 24hrs Laboratory Tests Test 05/14/18 17:34 05/14/18 21:09 05/15/18 02:57 05/15/18 08:27 Bedside Glucose 148 194 149 182 Test 05/15/18 12:43 Bedside Glucose 128 Medications Medication Current Medications IV Flush (NS 3 ml) 3 ml PER PROTOCOL IV ; Start 05/07/18 at 15:00 Ondansetron HCl (Zofran Inj) 4 mg Q6H PRN IV NAUSEA/VOMITING; Start 05/07/18 at 15:00 Acetaminophen (Tylenol Tab) 650 mg Q6H PRN PO .PAIN 1-3 OR TEMP; Start 05/07/18 at 15:00 Heparin Sodium (Porcine) (Heparin (5000 Units/1ml)) 5,000 unit Q8 SC Last administered on 05/15/18at 05:49; Admin Dose 5,000 UNIT; Start 05/07/18 at 22:00 Diagnostic Test (Pha) (Accu-Chek) 1 ea 02 XX Last administered on 05/14/18at 02:10; Admin Dose 1 EA; Start 05/08/18 at 02:00 Insulin Aspart (Novolog Insulin Pen) NOVOLOG *MODERATE* ALGORITHM WITH MEALS BEDTIME SC Last administered on 05/15/18 08:29; Admin Dose 4 UNIT; Start 05/07/18 at 18:00 Insulin Glargine (Lantus) 10 units DAILY@2000 SC Last administered on 05/10/18 21:58; Admin Dose 10 UNITS; Start 05/07/18 at 20:00; Status Hold Miscellaneous Information 1 ea NOTE XX ; Start 05/07/18 at 16:00 Glucose (Glutose) 15 gm Q15M PRN PO DECREASED GLUCOSE; Start 05/07/18 at 16:00 Glucose (Glutose) 22.5 gm Q15M PRN PO DECREASED GLUCOSE; Start 05/07/18 at 16:00 Dextrose (D50w Syringe) 25 ml Q15M PRN IV DECREASED GLUCOSE; Start 05/07/18 at 16:00 Dextrose (D50w Syringe) 50 ml Q15M PRN IV DECREASED GLUCOSE; Start 05/07/18 at 16:00 Glucagon (Glucagen) 1 mg Q15M PRN IM DECREASED GLUCOSE; Start 05/07/18 at 16:00 Glucose (Glutose) 15 gm Q15M PRN BUCCAL DECREASED GLUCOSE; Start 05/07/18 at 16:00 Guaifenesin (Robitussin Liquid Cup) 200 mg Q4H PRN PO koff koff Last administered on 05/07/18at 18:54; Admin Dose 200 MG; Start 05/07/18 at 17:00 Sodium Hypochlorite (Dakins Diluted (/40)) 1 ml DAILY TP Last administered on 05/15/18 08:30; Admin Dose 1 APPLIC; Start 05/08/18 at 09:00 Collagenase (Santyl) 1 applic DAILY TOP Last administered on 05/15/18 08:30; Admin Dose 1 APPLIC; Start 05/08/18 at 09:00 Insulin Aspart (Novolog Insulin Pen) 5 unit WITH MEALS SC Last administered on 05/11/18 12:15; Admin Dose 5 UNIT; Start 05/09/18 at 18:00; Status Hold Ceftriaxone Sodium 50 ml @ 100 mls/hr Q24H IVPB Last administered on 05/15/18at 12:50; Admin Dose 100 MLS/HR; Start 05/10/18 at 12:00 Metformin HCl (Glucophage) 850 mg BID WITH MEALS PO Last administered on 05/15/18at 08:35; Admin Dose 850 MG; Start 05/11/18 at 18:00 IV Flush (NS 10 ml) 10 ml PRN PRN IV FLUSH LINE; Start 05/14/18 at 18:00 JENNIFER [employer]ILL [employer] May 15, 2018 13:42
[2018-05-15 14:05] VITALS: BP 124/82; PULSE 84; RESP 17
== END 2018-05-15 19:15 | disposition home health service (06) | DRG 623 ==
LOC: FTE 11:16 → 2NE 13:47
PROVIDERS: ADMIT Internal Medicine; ATTEND Hospitalist
PROC: 0JBR0ZZ Excision of Left Foot Subcutaneous Tissue and Fascia, Open Approach (ICD-10-PCS; principal; 2018-05-07)
PROC: 0JBQ0ZZ Excision of Right Foot Subcutaneous Tissue and Fascia, Open Approach (ICD-10-PCS; 2018-05-07)
DX: E11.621 Type 2 diabetes mellitus with foot ulcer (principal); L03.116 Cellulitis of left lower limb; M86.8X7 Other osteomyelitis, ankle and foot; B37.49 Other urogenital candidiasis; E11.42 Type 2 diabetes mellitus with diabetic polyneuropathy; E11.65 Type 2 diabetes mellitus with hyperglycemia; E11.69 Type 2 diabetes mellitus with other specified complication; R82.71 Bacteriuria; L97.529 Non-pressure chronic ulcer of other part of left foot with unspecified severity; L97.519 Non-pressure chronic ulcer of other part of right foot with unspecified severity; Z79.4 Long term (current) use of insulin
CPT/HCPCS: 36569; 71045; 73630; 73718; 76937; 80048; 80053; 80061; 80202; 81001; 82962; 83036; 83605; 83690; 83735; 84100; 84443; 85025; 85651; 86140; 87070; 87086; 93922; 96372; 96374; 96375; J0696; J1644; J1815; J2543; J3370; J7030

== ENCOUNTER 2018-07-16 10:40 | Emergency (ER) | payer MEDICAID, OTHER ==
[~2018-07-16] VITALS: Ht 167.6 cm; Wt 83.6 kg
[~2018-07-16 10:40] MED LIST: FLUC200T PO; LINE600T33 PO; METF-849 PO
[2018-07-16 10:46] VITALS: BP 129/98; PULSE 88; RESP 18; Ht 167.6 cm; Wt 83.6 kg
[2018-07-16] MEDS ORDERED: MUPI22OI2 TOP (11:26)
[2018-07-16] MEDS ORDERED: CEPH-443 PO (11:26)
--- NOTE | 2018-07-16 15:43 | ERD ---
ER Documentation Chief Complaint Chief Complaint pain, swelling & reddness tip of nose x3 days HPI 48-year-old male presenting with swelling and redness to the tip of his nose x3 days. Patient has not taken any medication but did notice some mild crusting and irritation within the inside of his right nostril. He is never had this before. Denies other medical problems. NKDA. Surgical history denies. Social history denies ROS All systems reviewed and are negative except as per history of present illness. Medications Home Meds Active Scripts Mupirocin* (Bactroban*) 2% -22 Gram Oint...g., 1 APPLIC TOP BID for 7 Days, EA Prov:KETURAH VILLAREAL PA-C 07/16/18 Cephalexin* (Keflex*) 500 Mg Capsule, 500 MG PO QID for 7 Days, CAP Prov:KETURAH VILLAREAL PA-C 07/16/18 Linezolid (Linezolid) 600 Mg Tablet, 600 MG PO BID, #42 TAB Prov:MADI LUNDBERG MD 05/10/18 Metformin* (Glucophage*) 500 Mg Tab, 500 MG PO WITH BREAKFAST DINNE, #90 TAB Prov:MADI LUNDBERG MD 05/10/18 Fluconazole* (Diflucan*) 200 Mg Tablet, 200 MG PO DAILY, #4 TAB Prov:MADI LUNDBERG MD 05/10/18 Allergies Allergies: Coded Allergies: No Known Allergy (Unverified , 05/07/18) PMhx/Soc History of Surgery: Yes (hernia repair) Anesthesia Reaction: No Hx Neurological Disorder: No Hx Respiratory Disorders: No Hx Cardiac Disorders: No Hx Psychiatric Problems: No Hx Miscellaneous Medical Probl: No Hx Alcohol Use: Yes (occasional) Hx Substance Use: No Hx Tobacco Use: No FmHx Family History: No diabetes, No coronary disease, No other Physical Exam Vitals Vital Signs Date Temp Pulse Resp B/P (MAP) Pulse Ox O2 O2 Flow FiO2 Time Delivery Rate 07/16/18 98.6 88 18 129/98 97 10:46 (108) Physical Exam GENERAL: The patient is well-appearing, well-nourished, in no acute distress HEENT: Atraumatic. Conjunctivae are pink. Pupils equal, round, and reactive to light. There is no scleral icterus. Tympanic membranes clear bilaterally. Oropharynx clear. CHEST: Clear to auscultation bilaterally. There are no rales, wheezes or rhonchi. HEART: Regular rate and rhythm. No murmurs, clicks, rubs or gallops. SKIN: Erythema noted to the tip of the nose. Crusting noted within the right nostril. Procedures/MDM DM: 48-year-old male presenting with findings consistent with cellulitis. Patient was treated with oral antibiotics in addition to topical antibiotics. I have low suspicion for deep tracking infection. Patient is discharged with strict ER precautions and told to follow-up with primary care within 1 to 2 days for close evaluation. All questions answered at discharge Departure Diagnosis: Primary Impression: Cellulitis Condition: Stable Patient Instructions: Cellulitis, Facial Referrals: [facility] YOU HAVE RECEIVED A MEDICAL SCREENING EXAM AND THE RESULTS INDICATE THAT YOU DO NOT HAVE A CONDITION THAT REQUIRES URGENT TREATMENT IN THE EMERGENCY DEPARTMENT. FURTHER EVALUATION AND TREATMENT OF YOUR CONDITION CAN WAIT UNTIL YOU ARE SEEN IN YOUR DOCTORS OFFICE WITHIN THE NEXT 1-2 DAYS. IT IS YOUR RESPONSIBILITY TO MAKE AN APPOINTMENT FOR FOLOW-UP CARE. IF YOU HAVE A PRIMARY DOCTOR --you should call your primary doctor and schedule an appointment IF YOU DO NOT HAVE A PRIMARY DOCTOR YOU CAN CALL OUR PHYSICIAN REFERRAL HOTLINE AT IF YOU CAN NOT AFFORD TO SEE A PHYSICIAN YOU CAN CHOSE FROM THE FOLLOWING [facility] [id number] [facility] [facility] [address] [address] [address] [facility] [address] [facility] [address] [facility]. [facility]. [address] Additional Instructions: FOLLOW UP WITH YOUR PRIMARY CARE PHYSICIAN TOMORROW.Return to this facility if you are not improving as expected. KETURAH VILLAREAL PA-C Jul 16, 2018 15:43
== END 2018-07-16 11:53 | disposition home or self-care (01) ==
LOC: FTE 10:40
DX: L03.211 Cellulitis of face (principal); Z79.84 Long term (current) use of oral hypoglycemic drugs
CPT/HCPCS: 99283